=== PATIENT | female | born 1990 | race Caucasian/White ===

== ENCOUNTER → 2021-06-02 12:03 | Outpatient (CLI) | payer OTHER, SELFPAY ==
[2021-06-02 12:31] LABS: Add Manual Diff / Slide Review NO; Basophils Absolute Auto 100 /uL (0-100); Basophils Percent Auto 0.8 % (0-2); Eosinophils Absolute Auto 200 /uL (0-450); Eosinophils Percent Auto 2.1 % (2-4); Hematocrit 34.3 % (36-46); Hemoglobin 11.6 g/dL (12.0-16.0); Lymphocytes Absolute Auto 2200 /uL (1100-4500); Lymphocytes Percent Auto 28.1 % (25-40); Mean Corpuscular HGB Conc 33.7 % (30-36); Mean Corpuscular Hemoglobin 26.6 PG (26-34); Mean Corpuscular Volume 78.8 fL (80-100); Monocytes Absolute Auto 600 /uL (0-900); Monocytes Percent Auto 8.2 % (3-14); Neutrophils Absolute Auto 4700 /uL (1500-7000); Neutrophils Percent Auto 60.8 % (50-75); Platelet Count 389 X10^3/uL (150-400); Red Blood Cell Count 4.35 X10^6/uL (4.0-5.2); Red Cell Distribution Width 14.5 % (11.6-14.8); White Blood Cell Count 7.7 X10^3/uL (4.5-11.0)
[2021-06-02 13:08] LABS: HEMOLYSIS < 15 (0-50); Iron 37 ug/dL (37-170)
[2021-06-02 13:13] LABS: Erythrocyte Sedimentation Rate 19 MM/HR (0-20)
[2021-06-02 13:15] LABS: Alanine Aminotransferase 16 IU/L (<35); Albumin 4.6 g/dL (3.5-5.0); Albumin Globulin Ratio 1.6 (1.0-2.8); Alkaline Phosphatase 119 U/L (38-126); Aspartate Aminotransferase 24 IU/L (14-36); BUN Creatinine Ratio 11.7 (6-22); Bilirubin Total 0.6 mg/dL (0.2-1.3); Blood Urea Nitrogen 7 mg/dL (7-17); C-Reactive Protein Quant 2.8 mg/dL (<1.0); Calcium 9.5 mg/dL (8.4-10.2); Carbon Dioxide 26 mmol/L (22-32); Chloride 104 mmol/L (98-107); Estimated Glomerular Filt Rate > 60.0 mL/min (>60); Globulin 2.9 g/dL (1.7-4.1); Glucose 94 mg/dL (70-100); HEMOLYSIS < 15 (0-50); Potassium 3.9 mmol/L (3.4-5.1); Sodium 139 mmol/L (137-145); Total Protein 7.5 g/dL (6.3-8.2)
[2021-06-02 13:20] LABS: Percent Iron Saturation 8 % (15-50); Total Iron Binding Capacity 440 ug/dL (265-497); Transferrin 336 mg/dL (206-381)
[2021-06-02 13:39] LABS: TSH w/ Reflex to FT4 0.96 uIU/mL (0.47-4.68)
[2021-06-02 13:43] LABS: Ferritin 18 ng/mL (6-137)
[2021-06-02 13:58] LABS: Vitamin B12 848 pg/mL (239-931)
[2021-06-07 15:05] LABS: ANA Screen, IFA Negative (.)
== END ==
PROVIDERS: PCP Family Medicine; Referring Provider Family Medicine; Visit Provider Family Medicine
DX: D64.9 Anemia, unspecified (principal); E53.8 Deficiency of other specified B group vitamins; I10 Essential (primary) hypertension; K51.90 Ulcerative colitis, unspecified, without complications
CPT/HCPCS: 36415; 80053; 82607; 82728; 83540; 83550; 84443; 85025; 85651; 86038; 86140

== ENCOUNTER → 2022-01-31 09:26 | Outpatient (CLI) | payer OTHER, SELFPAY ==
[2022-01-31 10:13] LABS: Influenza A - CEPHEID Flu A POSITIVE (NEGATIVE); Influenza B - CEPHEID Flu B NEGATIVE (NEGATIVE); Respiratory Syncytial Virus Negative (Negative)
[2022-01-31 10:37] LABS: COVID-19 CEPHEID 4-PLEX PCR Negative (Negative)
== END ==
PROVIDERS: PCP Family Medicine; Visit Provider Nurse Practitioner Family
DX: R05.9 Cough, unspecified (principal)
CPT/HCPCS: 0241U

== ENCOUNTER 2022-02-07 18:14 | Emergency (ER) | payer OTHER, SELFPAY ==
[2022-02-07 18:19] VITALS: BP 142/87; PULSE 134; RESP 16; TEMP 36.8; O2SAT 99; BMI 37.5
[2022-02-07] MEDS: ONDANSETRON 4 MG/2 ML INJ IV ×2 (18:27→20:07)
--- NOTE | 2022-02-07 18:29 | DI.CT.S_ITS ---
PROCEDURE: CT ABDOMEN PELVIS WO CON INDICATIONS: RLQ pain, hx ulcerative colitis, vomiting 2 days TECHNIQUE: Noncontrast 5 mm thick sections acquired from the diaphragms to the symphysis. 5 mm coronal and sagittal reformats were then performed. For radiation dose reduction, the following was used: automated exposure control, adjustment of mA and/or kV according to patient size. COMPARISON: None. FINDINGS: Image quality: Excellent. ABDOMEN: Lung bases: Lung bases are clear. Heart size is normal. Solid organs: Liver is normal in size. Gallbladder is surgically absent. Pancreas is normal in contours. There is mild splenomegaly. No discrete splenic lesion. No adrenal nodules. Kidneys are normal in size, without hydronephrosis or nephrolithiasis. Peritoneum and bowel: There is no bowel obstruction. Mild mid to distal small bowel wall thickening extending to ileocecal junction is seen. Appendix is visualized in right lower quadrant and is within normal limits. No abscess collection. No free fluid or free air. Nodes and vessels: No retroperitoneal or mesenteric adenopathy by size criteria. Aorta and inferior vena cava are normal in caliber. Miscellaneous: No ventral hernias. PELVIS: Genitourinary: Bladder wall thickness is normal. Miscellaneous: No inguinal hernias or adenopathy. Bones: No suspicious bony lesions. No vertebral body compression fractures. IMPRESSION: 1. No evidence of acute appendicitis. No bowel obstruction. Suggestion of mild distal small bowel wall thickening concerning for mild terminal ileitis. No abscess collection. No free fluid or free air. 2. Borderline splenomegaly, no discrete splenic lesion. 3. Prior cholecystectomy. No biliary ductal dilatation. Dictated by: Eros Farnsworth M.D. on 02/07/2022 at 19:34 Approved by: Eros Farnsworth M.D. on 02/07/2022 at 19:37
--- NOTE | 2022-02-07 18:31 | ED.ABDPAIN ---
HPI - Abdominal Pain <DAR Frausto - Last Filed: 02/08/22 09:42> General Chief Complaint: Abdominal Pain Stated Complaint: severe abd pain, vomiting Time Seen by Provider: 02/07/22 18:25 Source: patient Mode of arrival: Ambulatory History of Present Illness HPI narrative: This is a 31-year-old female presents to the emergency department complaining of right lower quadrant pain which started yesterday, states that she has a history of ulcerative colitis, takes Entyvio for this every 4 weeks and recently received her dose, sees Dr. Belle with rheumatology. patient is not on any steroids. Denies any blood in her stool, states that she is been vomiting frequently, states that she had the flu a little while ago, 2 nights ago her son started vomiting, states that she is been vomiting as well. Denies alcohol or drug abuse, denies withdrawal from any substances. Patient denies dysuria, abnormal vaginal discharge, flank pain, back pain, or other complaint, states that her right lower quadrant is the most tender and denies having pelvic pain. Patient has a history of GERD, GI bleed, irregular menses with painful periods. Related Data Home Medications Medication Instructions Recorded Confirmed clonazepam 0.5 mg tablet (Klonopin) 0.5 mg PO DAILY PRN 06/02/21 01/31/22 cyanocobalamin (vitamin B-12) 100 mcg IM QMONTH 06/02/21 01/31/22 1,000 mcg/mL injection solution esomeprazole magnesium 40 mg 40 mg PO DAILY 06/02/21 01/31/22 capsule,delayed release (Nexium) labetalol 200 mg tablet 200 mg PO DAILY 06/02/21 01/31/22 vedolizumab 300 mg intravenous 300 mg IV Q4W 06/02/21 01/31/22 solution (Entyvio) Previous Rx's Medication Instructions Recorded sertraline 25 mg tablet (Zoloft) 25 mg PO DAILY #60 tabs 07/18/21 hydrocodone 5 mg-acetaminophen 325 1 tab PO BID PRN pain #10 tabs 02/07/22 mg tablet ondansetron 4 mg disintegrating 4 mg PO Q8H PRN nausea and 02/07/22 tablet vomiting #14 tabs Allergies Allergy/AdvReac Type Severity Reaction Status Date / Time Latex, Natural Rubber Allergy Mild Verified 02/07/22 18:19 Review of Systems <DAR Frausto - Last Filed: 02/08/22 09:42> Review of Systems ROS Unobtainable: All systems reviewed & are unremarkable except as noted in HPI and below Patient History <DAR Frausto - Last Filed: 02/08/22 09:42> Medical History Anxiety (~2017) Carpal tunnel syndrome (~2012) Chronic back pain (~2018) GERD (gastroesophageal reflux disease) (~2010) GI bleeding Hypertension (~2013) Infertility (~2016) Irregular menstrual cycle Painful menstrual periods Ulcerative colitis (~2010) Vertigo (~2012) Surgical History Anesthesia History of section (~09/2020) History of cholecystectomy (~12/2009) History of tonsillectomy (~06/2017) Ovarian cyst (~12/2017) Family History Father History of heart disease Hypertension Mother Mental health problem Grandfather History of heart disease Hyperlipidemia Hypertension Grandmother Hypertension Social History Smoking Status: Never smoker Smoking Status: Never smoker alcohol intake frequency: holidays/special occasions only Substance Use Type: does not use Exam <DAR Frausto - Last Filed: 02/08/22 09:42> Narrative Exam Narrative: Reviewed vitals signs and nursing notes. General: cooperative, patient is sitting up, diaphoretic, appears uncomfortable and is tachycardic with a rate of 130s without measured fever HEENT: symmetrical facial expressions, moist mucous membranes Cardiovascular: Tachycardic rate and regular rhythm, no peripheral edema, warm extremities Respiratory: normal effort, able to speak in complete sentences, without wheezing, stridor, or abnormal breath sounds. No retractions or tachypnea. GI: abdomen soft, tender to palpation to the right lower quadrant, nondistended, without masses, rebound tenderness or exquisite tenderness with exam. No CVA tenderness bilaterally MSK: moves all extremities, neurovascularly intact, no weakness, normal tone Skin: brisk capillary refill, mildly pale with diaphoresis currently Neuro: normal speech and cognition, A&O x3, ambulatory, clear speech Psych: mental status is grossly normal, congruent mood, normal affect, pleasant and cooperative Initial Vital Signs Initial Vital Signs: Vital Signs Temperature 98.3 F 02/07/22 18:19 Pulse Rate 134 H 02/07/22 18:19 Respiratory Rate 16 02/07/22 18:19 Blood Pressure 142/87 H 02/07/22 18:19 Pulse Oximetry 99 02/07/22 18:19 Oxygen Delivery Method 02/07/22 18:19 <Caitlin Tomas MD - Last Filed: 02/23/22 18:06> Initial Vital Signs Initial Vital Signs: Vital Signs Temperature 98.3 F 02/07/22 18:19 Pulse Rate 134 H 02/07/22 18:19 Respiratory Rate 16 02/07/22 18:19 Blood Pressure 142/87 H 02/07/22 18:19 Pulse Oximetry 99 02/07/22 18:19 Oxygen Delivery Method 02/07/22 18:19 Course <DAR Frausto - Last Filed: 02/08/22 09:42> Orders Ordered: Discontinued Medications Hydrocodone Bitart/Acetaminophen (Hydrocodone/Acet 5/325 Prepack) 1 bottle MISC SEEINSTR ONE Stop: 02/07/22 20:10 Last Admin: 02/07/22 20:51 Dose: 1 bottle Documented By: AGUSTIN Hydromorphone HCl (Hydromorphone 0.5 Mg Inj) 0.5 mg IV NOW ONE Stop: 02/07/22 18:31 Last Admin: 02/07/22 18:43 Dose: 0.5 mg Documented By: AGUSTIN Sodium Chloride (Normal Saline 0.9%) 1,000 mls @ 1,000 mls/hr IV BOLUS ONE Stop: 02/07/22 19:25 Last Infusion: 02/07/22 20:05 Dose: 0 mls/hr Documented By: Admin: 02/07/22 18:34 Dose: 1,000 mls/hr Documented By: AGUSTIN Sodium Chloride (Normal Saline 0.9%) 1,000 mls @ 1,000 mls/hr IV BOLUS ONE Stop: 02/07/22 20:29 Last Infusion: 02/07/22 20:57 Dose: 0 mls/hr Documented By: Admin: 02/07/22 20:05 Dose: 1,000 mls/hr Documented By: AGUSTIN Ketorolac Tromethamine (Ketorolac 30 Mg/Ml Vial) 15 mg IV NOW ONE Stop: 02/07/22 19:42 Last Admin: 02/07/22 20:05 Dose: 15 mg Documented By: AGUSTIN Methylprednisolone (Methylprednisolone 125 Mg/2 Ml Vial) 125 mg IV NOW ONE Stop: 02/07/22 19:51 Last Admin: 02/07/22 20:07 Dose: 125 mg Documented By: AGUSTIN Ondansetron HCl (Ondansetron 4 Mg/2 Ml Inj) 4 mg IV NOW PRN PRN Reason: Nausea And Vomiting Last Admin: 02/07/22 18:27 Dose: 4 mg Documented By: AGUSTIN Ondansetron HCl (Ondansetron 4 Mg/2 Ml Inj) 4 mg IV NOW ONE Stop: 02/07/22 18:26 Last Admin: 02/07/22 20:07 Dose: 4 mg Documented By: AGUSTIN Ondansetron HCl (Ondansetron 4 Mg Odt Prepack) 1 bottle MISC SEEINSTR ONE Stop: 02/07/22 20:10 Last Admin: 02/07/22 20:51 Dose: 1 bottle Documented By: AGUSTIN Pantoprazole Sodium (Pantoprazole 40 Mg Vial) 40 mg IV NOW ONE Stop: 02/07/22 18:26 Last Admin: 02/07/22 18:34 Dose: 40 mg Documented By: AGUSTIN Reevaluation(s) Reevaluation #1: Patient appears to be feeling much better after her pain medication and nausea medication, patient is receiving the end of her 1st L of fluid. Vital Signs Vital signs: Vital Signs - 8 hr 02/07/22 18:19 Temperature 98.3 F Pulse Rate 134 H Respiratory Rate 16 Blood Pressure 142/87 H Pulse Oximetry 99 Oxygen Delivery Method Room Air <Caitlin Tomas MD - Last Filed: 02/23/22 18:06> Orders Ordered: Discontinued Medications Hydrocodone Bitart/Acetaminophen (Hydrocodone/Acet 5/325 Prepack) 1 bottle MISC SEEINSTR ONE Stop: 02/07/22 20:10 Last Admin: 02/07/22 20:51 Dose: 1 bottle Documented By: AGUSTIN Hydromorphone HCl (Hydromorphone 0.5 Mg Inj) 0.5 mg IV NOW ONE Stop: 02/07/22 18:31 Last Admin: 02/07/22 18:43 Dose: 0.5 mg Documented By: AGUSTIN Sodium Chloride (Normal Saline 0.9%) 1,000 mls @ 1,000 mls/hr IV BOLUS ONE Stop: 02/07/22 19:25 Last Infusion: 02/07/22 20:05 Dose: 0 mls/hr Documented By: Admin: 02/07/22 18:34 Dose: 1,000 mls/hr Documented By: AGUSTIN Sodium Chloride (Normal Saline 0.9%) 1,000 mls @ 1,000 mls/hr IV BOLUS ONE Stop: 02/07/22 20:29 Last Infusion: 02/07/22 20:57 Dose: 0 mls/hr Documented By: Admin: 02/07/22 20:05 Dose: 1,000 mls/hr Documented By: AGUSTIN Ketorolac Tromethamine (Ketorolac 30 Mg/Ml Vial) 15 mg IV NOW ONE Stop: 02/07/22 19:42 Last Admin: 02/07/22 20:05 Dose: 15 mg Documented By: AGUSTIN Methylprednisolone (Methylprednisolone 125 Mg/2 Ml Vial) 125 mg IV NOW ONE Stop: 02/07/22 19:51 Last Admin: 02/07/22 20:07 Dose: 125 mg Documented By: AGUSTIN Ondansetron HCl (Ondansetron 4 Mg/2 Ml Inj) 4 mg IV NOW PRN PRN Reason: Nausea And Vomiting Last Admin: 02/07/22 18:27 Dose: 4 mg Documented By: AGUSTIN Ondansetron HCl (Ondansetron 4 Mg/2 Ml Inj) 4 mg IV NOW ONE Stop: 02/07/22 18:26 Last Admin: 02/07/22 20:07 Dose: 4 mg Documented By: AGUSTIN Ondansetron HCl (Ondansetron 4 Mg Odt Prepack) 1 bottle MISC SEEINSTR ONE Stop: 02/07/22 20:10 Last Admin: 02/07/22 20:51 Dose: 1 bottle Documented By: AGUSTIN Pantoprazole Sodium (Pantoprazole 40 Mg Vial) 40 mg IV NOW ONE Stop: 02/07/22 18:26 Last Admin: 02/07/22 18:34 Dose: 40 mg Documented By: AGUSTIN Vital Signs Vital signs: Vital Signs - 8 hr 02/07/22 18:19 Temperature 98.3 F Pulse Rate 134 H Respiratory Rate 16 Blood Pressure 142/87 H Pulse Oximetry 99 Oxygen Delivery Method Room Air MDM - Abdominal Pain <Babssonja Najerahali, BAKERY DECORATOR - Last Filed: 02/08/22 09:42> Lab Data Result diagrams: 02/07/22 18:35 02/07/22 18:35 Labs: Lab Results 02/07/22 02/07/22 02/07/22 Range/Units 18:35 18:35 18:35 WBC 16.6 H (4.5-11.0) X10^3/uL RBC 5.25 H (4.0-5.2) X10^6/uL Hgb 13.9 (12.0-16.0) g/dL Hct 41.3 (36-46) % MCV 78.7 L (80-100) fL MCH 26.4 (26-34) PG MCHC 33.5 (30-36) % RDW 14.9 H (11.6-14.8) % Plt Count 504 H (150-400) X10^3/uL Neut % (Auto) 86.7 H (50-75) % Lymph % (Auto) 6.4 L (25-40) % Calloway % (Auto) 6.1 (3-14) % Eos % (Auto) 0.6 L (2-4) % Baso % (Auto) 0.2 (0-2) % Neut # (Auto) 30384 H (8459-8738) /uL Lymph # (Auto) 1100 (4845-0626) /uL Calloway # (Auto) 1000 H (0-900) /uL Eos # (Auto) 100 (0-450) /uL Baso # (Auto) 0 (0-100) /uL Sodium 138 (137-145) mmol/L Potassium 4.3 (3.4-5.1) mmol/L Chloride 101 (98-107) mmol/L Carbon Dioxide 26 (22-32) mmol/L BUN 12 (7-17) mg/dL Creatinine 0.66 (0.52-1.04) mg/dL Estimated GFR > 60 (>60) mL/min BUN/Creatinine Ratio 18.2 (6-22) Glucose 116 H (70-100) mg/dL Lactate 1.6 (0.7-2.1) mmol/L Calcium 9.9 (8.4-10.2) mg/dL Total Bilirubin 0.9 (0.2-1.3) mg/dL AST 23 (14-36) IU/L ALT 17 (<35) IU/L Alkaline Phosphatase 125 (38-126) U/L Total Creatine Kinase (30-135) U/L CK-MB (CK-2) CK-MB (CK-2) Rel Index Troponin I (0.01-0.034) ng/mL Total Protein 9.1 H (6.3-8.2) g/dL Albumin 5.2 H (3.5-5.0) g/dL Globulin 3.9 (1.7-4.1) g/dL Albumin/Globulin Ratio 1.3 (1.0-2.8) Lipase 45 (23-300) U/L Procalcitonin (<0.5) ng/mL Urine RBC (0-5/HPF) Urine WBC (0-5/HPF) Ur Squamous Epith Cells (0-5/HPF) Amorphous Sediment Urine Bacteria (None) SARS-CoV-2 (PCR) (Negative) Influenza A (RT-PCR) (NEGATIVE) Influenza B (RT-PCR) (NEGATIVE) RSV (PCR) (Negative) 02/07/22 02/07/22 02/07/22 Range/Units 18:35 18:35 18:35 WBC (4.5-11.0) X10^3/uL RBC (4.0-5.2) X10^6/uL Hgb (12.0-16.0) g/dL Hct (36-46) % MCV (80-100) fL MCH (26-34) PG MCHC (30-36) % RDW (11.6-14.8) % Plt Count (150-400) X10^3/uL Neut % (Auto) (50-75) % Lymph % (Auto) (25-40) % Calloway % (Auto) (3-14) % Eos % (Auto) (2-4) % Baso % (Auto) (0-2) % Neut # (Auto) (2557-3018) /uL Lymph # (Auto) (2957-5985) /uL Calloway # (Auto) (0-900) /uL Eos # (Auto) (0-450) /uL Baso # (Auto) (0-100) /uL Sodium (137-145) mmol/L Potassium (3.4-5.1) mmol/L Chloride (98-107) mmol/L Carbon Dioxide (22-32) mmol/L BUN (7-17) mg/dL Creatinine (0.52-1.04) mg/dL Estimated GFR (>60) mL/min BUN/Creatinine Ratio (6-22) Glucose (70-100) mg/dL Lactate (0.7-2.1) mmol/L Calcium (8.4-10.2) mg/dL Total Bilirubin (0.2-1.3) mg/dL AST (14-36) IU/L ALT (<35) IU/L Alkaline Phosphatase (38-126) U/L Total Creatine Kinase 81 (30-135) U/L CK-MB (CK-2) TNP CK-MB (CK-2) Rel Index TNP Troponin I < 0.012 (0.01-0.034) ng/mL Total Protein (6.3-8.2) g/dL Albumin (3.5-5.0) g/dL Globulin (1.7-4.1) g/dL Albumin/Globulin Ratio (1.0-2.8) Lipase (23-300) U/L Procalcitonin 0.03 (<0.5) ng/mL Urine RBC 0-1/hpf (0-5/HPF) Urine WBC 0-1/hpf (0-5/HPF) Ur Squamous Epith Cells 0-1 /hpf (0-5/HPF) Amorphous Sediment 1+ Urine Bacteria Occasional (0-1) (None) SARS-CoV-2 (PCR) (Negative) Influenza A (RT-PCR) (NEGATIVE) Influenza B (RT-PCR) (NEGATIVE) RSV (PCR) (Negative) 02/07/22 Range/Units 18:48 WBC (4.5-11.0) X10^3/uL RBC (4.0-5.2) X10^6/uL Hgb (12.0-16.0) g/dL Hct (36-46) % MCV (80-100) fL MCH (26-34) PG MCHC (30-36) % RDW (11.6-14.8) % Plt Count (150-400) X10^3/uL Neut % (Auto) (50-75) % Lymph % (Auto) (25-40) % Calloway % (Auto) (3-14) % Eos % (Auto) (2-4) % Baso % (Auto) (0-2) % Neut # (Auto) (4422-6298) /uL Lymph # (Auto) (3662-4825) /uL Calloway # (Auto) (0-900) /uL Eos # (Auto) (0-450) /uL Baso # (Auto) (0-100) /uL Sodium (137-145) mmol/L Potassium (3.4-5.1) mmol/L Chloride (98-107) mmol/L Carbon Dioxide (22-32) mmol/L BUN (7-17) mg/dL Creatinine (0.52-1.04) mg/dL Estimated GFR (>60) mL/min BUN/Creatinine Ratio (6-22) Glucose (70-100) mg/dL Lactate (0.7-2.1) mmol/L Calcium (8.4-10.2) mg/dL Total Bilirubin (0.2-1.3) mg/dL AST (14-36) IU/L ALT (<35) IU/L Alkaline Phosphatase (38-126) U/L Total Creatine Kinase (30-135) U/L CK-MB (CK-2) CK-MB (CK-2) Rel Index Troponin I (0.01-0.034) ng/mL Total Protein (6.3-8.2) g/dL Albumin (3.5-5.0) g/dL Globulin (1.7-4.1) g/dL Albumin/Globulin Ratio (1.0-2.8) Lipase (23-300) U/L Procalcitonin (<0.5) ng/mL Urine RBC (0-5/HPF) Urine WBC (0-5/HPF) Ur Squamous Epith Cells (0-5/HPF) Amorphous Sediment Urine Bacteria (None) SARS-CoV-2 (PCR) Negative (Negative) Influenza A (RT-PCR) Flu a negative (NEGATIVE) Influenza B (RT-PCR) Flu b negative (NEGATIVE) RSV (PCR) Negative (Negative) Point of care testing: Point of Care Testing Test Results Negative Urine Dip Bedside Urine Glucose Negative Bedside Urine Bilirubin - Negative Bedside Urine Ketone +/- 5 Urine Specific Brainard 1.03 Bedside Urine Occult Blood +/- Bedside Urine pH 5.5 Bedside Urine Protein ++ 100 Bedside Urine Urobilinogen - Negative Bedside Urine Nitrite - Negative Bedside Urine Leukocytes - Negative Esterase Imaging Data CT scan - abdomen/pelvis: Radiologist's Impression: PROCEDURE:? CT ABDOMEN PELVIS WO CON ? INDICATIONS:? RLQ pain, hx ulcerative colitis, vomiting 2 days ? TECHNIQUE:? Noncontrast 5 mm thick sections acquired from the diaphragms to the symphysis.? 5 mm coronal and sagittal reformats were then performed.? For radiation dose reduction, the following was used:? automated exposure control, adjustment of mA and/or kV according to patient size.? ? COMPARISON:? None. ? FINDINGS:? Image quality:? Excellent.? ? ABDOMEN:? Lung bases:? Lung bases are clear.? Heart size is normal.? ? Solid organs:? Liver is normal in size.? Gallbladder is surgically absent.? Pancreas is normal in contours.? There is mild splenomegaly.? No discrete splenic lesion.? No adrenal nodules.? Kidneys are normal in size, without hydronephrosis or nephrolithiasis.? ? Peritoneum and bowel:? There is no bowel obstruction.? Mild mid to distal small bowel wall thickening extending to ileocecal junction is seen.? Appendix is visualized in right lower quadrant and is within normal limits.? No abscess collection.? No free fluid or free air. ? Nodes and vessels:? No retroperitoneal or mesenteric adenopathy by size criteria.? Aorta and inferior vena cava are normal in caliber.? ? Miscellaneous:? No ventral hernias.? ? ? PELVIS:? Genitourinary:? Bladder wall thickness is normal.? ? Miscellaneous:? No inguinal hernias or adenopathy.? ? Bones:? No suspicious bony lesions.? No vertebral body compression fractures.? ? IMPRESSION:? ? 1. No evidence of acute appendicitis.? No bowel obstruction.? Suggestion of mild distal small bowel wall thickening concerning for mild terminal ileitis.? No abscess collection. ?No free fluid or free air. ? 2. Borderline splenomegaly, no discrete splenic lesion. ? 3. Prior cholecystectomy.? No biliary ductal dilatation.? ? ? Dictated by: Eros Farnsworth M.D. on 02/07/2022 at 19:34 ? ? Approved by: Eros Farnsworth M.D. on 02/07/2022 at 19:37 ? Chest x-ray: Radiologist's Impression: PROCEDURE:? XR CHEST 2V ? INDICATIONS:? pneumonia? ? TECHNIQUE:? 2 views of the chest were acquired.? ? COMPARISON:? None. ? FINDINGS:? ? Surgical changes and devices:? None.? ? Lungs and pleura:? Lungs are clear.? No pleural effusions or pneumothorax.? ? Mediastinum:? Mediastinal contours are normal.? Heart size is normal.? ? Bones and chest wall:? No suspicious bony abnormalities.? Soft tissues appear unremarkable.? ? IMPRESSION:? No acute cardiopulmonary pathology. ? ? Dictated by: Eros Farnsworth M.D. on 02/07/2022 at 20:05 ? ? Approved by: Eros Farnsworth M.D. on 02/07/2022 at 20:07 ? MDM Narrative Medical decision making narrative: This is a 31-year-old female presents to the emergency department 7 days after testing positive for influenza A with a sick child at home who started vomiting 2 days ago. She presents with frequent vomiting today without blood in her emesis or her stool with a history of start of colitis for which she is on Entyvio 4. Denies diarrhea, denies fever or chills. States that she is extremely dehydrated and her workup today reflects hemoconcentration with acute dehydration. Her white blood cell count is elevated to 16.6 with predominance of neutrophils, low lymphocytic edge and without evidence of bacterial infection. With a source. She was given 1 L of IV fluids, pain medication, and her symptoms improved greatly her vomiting stopped. Her respiratory panel is negative for COVID, influenza and RSV today, her urine is negative for infection, procalcitonin 0.03 without electrolyte abnormalities otherwise. Her lactate is 1.6. test was negative. Abdomen pelvis CT was ordered for right lower quadrant tenderness, no evidence of acute appendicitis or bowel obstruction, suggestion of mild distal small bowel wall thickening for mild terminal ileitis without abscess collection, no free fluid or free air, patient has a history of ulcerative colitis but came in today for right lower quadrant tenderness. Diarrhea is not her predominant symptom, vomiting is. Chest x-ray was obtained for evaluation of superimposed bacterial infection, she does not have any focal opacities or consolidations concerning for bacterial pneumonia this point. Patient appears much more comfortable after her 1 L of fluid and pain medication. She was treated with 2 L of normal saline, her tachycardia has improved, her pain is mostly relieved, she was given Solu-Medrol 125 mg IV and prescribed 5 days of prednisone at 20 mg. She was given a total of 8 mg of Zofran, her nausea and vomiting has improved, she was able tolerate p.o. fluids prior to discharge No antibiotics were prescribed today, encouraged her to schedule a follow-up appoint with [facility] and follow-up with rheumatology as needed. No peritoneal signs on abdominal exam. Patient is now p.o. tolerant. Serial abdominal exam without increase in abdominal pain. Given history and exam, low suspicion for acute abdominal process, such as acute cholecystitis, pancreatitis, perforated viscus, atypical appendicitis, colitis, diverticulitis or torsion. Extensive conversation about ER return precautions and need for close follow-up. Patient's primary care provider is Dr. Mosqueda, she sees Dr. Belle with rheumatology and [facility]. Consulted with Dr. Medina for care planning today for her terminal ileitis and we discussed the above therapies that she received here in the emergency department with agreement. Patient's vital signs were improved on recheck. Patient is appropriate and amenable to discharge home. Vital signs are stable on repeat examination is unremarkable. Patient has been informed of results. Patient has been given strict return to ER precautions for any new or worsening symptoms. Patient understands to follow up closely with outpatient providers as instructed. Patient understands plan and agrees to discharge home. All questions and concerns answered at this time. <Caitlin Tomas MD - Last Filed: 02/23/22 18:06> Lab Data Labs: Lab Results 02/07/22 02/07/22 02/07/22 Range/Units 18:35 18:35 18:35 WBC 16.6 H (4.5-11.0) X10^3/uL RBC 5.25 H (4.0-5.2) X10^6/uL Hgb 13.9 (12.0-16.0) g/dL Hct 41.3 (36-46) % MCV 78.7 L (80-100) fL MCH 26.4 (26-34) PG MCHC 33.5 (30-36) % RDW 14.9 H (11.6-14.8) % Plt Count 504 H (150-400) X10^3/uL Neut % (Auto) 86.7 H (50-75) % Lymph % (Auto) 6.4 L (25-40) % Calloway % (Auto) 6.1 (3-14) % Eos % (Auto) 0.6 L (2-4) % Baso % (Auto) 0.2 (0-2) % Neut # (Auto) 58452 H (3951-3241) /uL Lymph # (Auto) 1100 (0858-8876) /uL Calloway # (Auto) 1000 H (0-900) /uL Eos # (Auto) 100 (0-450) /uL Baso # (Auto) 0 (0-100) /uL Sodium 138 (137-145) mmol/L Potassium 4.3 (3.4-5.1) mmol/L Chloride 101 (98-107) mmol/L Carbon Dioxide 26 (22-32) mmol/L BUN 12 (7-17) mg/dL Creatinine 0.66 (0.52-1.04) mg/dL Estimated GFR > 60 (>60) mL/min BUN/Creatinine Ratio 18.2 (6-22) Glucose 116 H (70-100) mg/dL Lactate 1.6 (0.7-2.1) mmol/L Calcium 9.9 (8.4-10.2) mg/dL Total Bilirubin 0.9 (0.2-1.3) mg/dL AST 23 (14-36) IU/L ALT 17 (<35) IU/L Alkaline Phosphatase 125 (38-126) U/L Total Creatine Kinase (30-135) U/L CK-MB (CK-2) CK-MB (CK-2) Rel Index Troponin I (0.01-0.034) ng/mL Total Protein 9.1 H (6.3-8.2) g/dL Albumin 5.2 H (3.5-5.0) g/dL Globulin 3.9 (1.7-4.1) g/dL Albumin/Globulin Ratio 1.3 (1.0-2.8) Lipase 45 (23-300) U/L Procalcitonin (<0.5) ng/mL Urine RBC (0-5/HPF) Urine WBC (0-5/HPF) Ur Squamous Epith Cells (0-5/HPF) Amorphous Sediment Urine Bacteria (None) SARS-CoV-2 (PCR) (Negative) Influenza A (RT-PCR) (NEGATIVE) Influenza B (RT-PCR) (NEGATIVE) RSV (PCR) (Negative) 02/07/22 02/07/22 02/07/22 Range/Units 18:35 18:35 18:35 WBC (4.5-11.0) X10^3/uL RBC (4.0-5.2) X10^6/uL Hgb (12.0-16.0) g/dL Hct (36-46) % MCV (80-100) fL MCH (26-34) PG MCHC (30-36) % RDW (11.6-14.8) % Plt Count (150-400) X10^3/uL Neut % (Auto) (50-75) % Lymph % (Auto) (25-40) % Calloway % (Auto) (3-14) % Eos % (Auto) (2-4) % Baso % (Auto) (0-2) % Neut # (Auto) (2465-9340) /uL Lymph # (Auto) (1738-8027) /uL Calloway # (Auto) (0-900) /uL Eos # (Auto) (0-450) /uL Baso # (Auto) (0-100) /uL Sodium (137-145) mmol/L Potassium (3.4-5.1) mmol/L Chloride (98-107) mmol/L Carbon Dioxide (22-32) mmol/L BUN (7-17) mg/dL Creatinine (0.52-1.04) mg/dL Estimated GFR (>60) mL/min BUN/Creatinine Ratio (6-22) Glucose (70-100) mg/dL Lactate (0.7-2.1) mmol/L Calcium (8.4-10.2) mg/dL Total Bilirubin (0.2-1.3) mg/dL AST (14-36) IU/L ALT (<35) IU/L Alkaline Phosphatase (38-126) U/L Total Creatine Kinase 81 (30-135) U/L CK-MB (CK-2) TNP CK-MB (CK-2) Rel Index TNP Troponin I < 0.012 (0.01-0.034) ng/mL Total Protein (6.3-8.2) g/dL Albumin (3.5-5.0) g/dL Globulin (1.7-4.1) g/dL Albumin/Globulin Ratio (1.0-2.8) Lipase (23-300) U/L Procalcitonin 0.03 (<0.5) ng/mL Urine RBC 0-1/hpf (0-5/HPF) Urine WBC 0-1/hpf (0-5/HPF) Ur Squamous Epith Cells 0-1 /hpf (0-5/HPF) Amorphous Sediment 1+ Urine Bacteria Occasional (0-1) (None) SARS-CoV-2 (PCR) (Negative) Influenza A (RT-PCR) (NEGATIVE) Influenza B (RT-PCR) (NEGATIVE) RSV (PCR) (Negative) 02/07/22 Range/Units 18:48 WBC (4.5-11.0) X10^3/uL RBC (4.0-5.2) X10^6/uL Hgb (12.0-16.0) g/dL Hct (36-46) % MCV (80-100) fL MCH (26-34) PG MCHC (30-36) % RDW (11.6-14.8) % Plt Count (150-400) X10^3/uL Neut % (Auto) (50-75) % Lymph % (Auto) (25-40) % [place] % (Auto) (3-14) % Eos % (Auto) (2-4) % Baso % (Auto) (0-2) % Neut # (Auto) (4123-4001) /uL Lymph # (Auto) (4595-6526) /uL [place] # (Auto) (0-900) /uL Eos # (Auto) (0-450) /uL Baso # (Auto) (0-100) /uL Sodium (137-145) mmol/L Potassium (3.4-5.1) mmol/L Chloride (98-107) mmol/L Carbon Dioxide (22-32) mmol/L BUN (7-17) mg/dL Creatinine (0.52-1.04) mg/dL Estimated GFR (>60) mL/min BUN/Creatinine Ratio (6-22) Glucose (70-100) mg/dL Lactate (0.7-2.1) mmol/L Calcium (8.4-10.2) mg/dL Total Bilirubin (0.2-1.3) mg/dL AST (14-36) IU/L ALT (<35) IU/L Alkaline Phosphatase (38-126) U/L Total Creatine Kinase (30-135) U/L CK-MB (CK-2) CK-MB (CK-2) Rel Index Troponin I (0.01-0.034) ng/mL Total Protein (6.3-8.2) g/dL Albumin (3.5-5.0) g/dL Globulin (1.7-4.1) g/dL Albumin/Globulin Ratio (1.0-2.8) Lipase (23-300) U/L Procalcitonin (<0.5) ng/mL Urine RBC (0-5/HPF) Urine WBC (0-5/HPF) Ur Squamous Epith Cells (0-5/HPF) Amorphous Sediment Urine Bacteria (None) SARS-CoV-2 (PCR) Negative (Negative) Influenza A (RT-PCR) Flu a negative (NEGATIVE) Influenza B (RT-PCR) Flu b negative (NEGATIVE) RSV (PCR) Negative (Negative) Point of care testing: Point of Care Testing Test Results Negative Urine Dip Bedside Urine Glucose Negative Bedside Urine Bilirubin - Negative Bedside Urine Ketone +/- 5 Urine Specific [place] 1.03 Bedside Urine Occult Blood +/- Bedside Urine pH 5.5 Bedside Urine Protein ++ 100 Bedside Urine Urobilinogen - Negative Bedside Urine Nitrite - Negative Bedside Urine Leukocytes - Negative Esterase Discharge Plan Departure Patient Disposition: Home Clinical Impression: Ileitis, terminal, Abdominal pain, Vomiting, Acute dehydration Instructions: Dehydration, DI for Vomiting -- Adult, DI for Ileitis Activity Restrictions/Additional Instructions: *You have been diagnosed with ileitis, inflammation of the terminal ileum which is in the right lower quadrant where you had pain today. This is most likely related to a flare and should not need antibiotics since you have history of ulcerative colitis. We gave you a steroid today to calm this down, and 5 days of a steroid to help keep the inflammation down. Please use the pain pills as needed to help treat your pain but consider a stool softener so that you do not develop constipation with this inflammatory colon. Please stay hydrated, use Tylenol and hydrocodone as needed for your pain, please schedule a follow-up appointment with the gastroenterology group for a recheck, your CT will be available for them to review. You were very dehydrated when you came in today, your COVID, flu and RSV test came back negative however I think you have inflammation and worsening of your symptoms due to the flu and your viral respiratory infection. I am glad that part is better, I am sorry for your symptoms, I have sent Zofran for nausea vomiting to the [facility] as well. *What to do: *Please continue to take your regular medications as directed. [ x] New medication prescriptions sent to your pharmacy: [ [facility]] [ ] New medication written as a paper prescription [ ] No new medications given *Please follow up with your primary care provider in 2-3 days, call for an appointment. Let them know you were seen in the Emergency Department and that we asked that you be seen for follow-up. We will electronically transmit a record of today's note if your PCP is in our system *If you do not have a primary care provider please contact [phone] to establish care with one of the [facility] primary care providers. *Return to Emergency Department if you should have any new, worsening, or concerning symptoms, such as [fever greater than 101F, chills, worsening pain, persistent vomiting or other bothersome symptoms]. Prescriptions: New ondansetron 4 mg tablet,disintegrating 4 mg PO Q8H PRN (Reason: nausea and vomiting) Qty: 14 0RF hydrocodone-acetaminophen 5-325 mg tablet 1 tab PO BID PRN (Reason: pain) Qty: 10 0RF Rx Instructions: Please consider a stool softener with this medication so it does not cause constipation No Action Entyvio 300 mg recon soln 300 mg IV Q4W Rx Instructions: administer week 6 of treatment esomeprazole magnesium [Nexium] 40 mg capsule,delayed release(DR/EC) 40 mg PO DAILY labetalol 200 mg tablet 200 mg PO DAILY cyanocobalamin (vitamin B-12) 1,000 mcg/mL solution 100 mcg IM QMONTH clonazepam [Klonopin] 0.5 mg tablet 0.5 mg PO DAILY PRN sertraline [Zoloft] 25 mg tablet 25 mg PO DAILY Qty: 60 0RF Referrals: [facility] Gastroenterology [Outside] Anuja Belle MD [Non-Staff] - Clemente Mosqueda MD [Primary Care Provider] - Visit Report Forms: Patient Portal/API <Caitlin Tomas MD - Last Filed: 02/23/22 18:06> Cosign ED Attending Cosignature Attestation: I was immediately available in the department for consultation throughout this patient's visit. I agree with documentation as above. Caitlin Tomas MD
[2022-02-07] MEDS: SODIUM CHLORIDE 0.9% 1,000 ML 1000 ML IV ×2 (18:34→20:05)
[2022-02-07] MEDS: PANTOPRAZOLE 40 MG VIAL IV (18:34)
[2022-02-07] MEDS: HYDROMORPHONE 0.5 MG INJ IV (18:43)
[2022-02-07 19:01] LABS: Add Manual Diff / Slide Review NO; Basophils Absolute Auto 0 /uL (0-100); Basophils Percent Auto 0.2 % (0-2); Eosinophils Absolute Auto 100 /uL (0-450); Eosinophils Percent Auto 0.6 % (2-4); Hematocrit 41.3 % (36-46); Hemoglobin 13.9 g/dL (12.0-16.0); Lymphocytes Absolute Auto 1100 /uL (1100-4500); Lymphocytes Percent Auto 6.4 % (25-40); Mean Corpuscular HGB Conc 33.5 % (30-36); Mean Corpuscular Hemoglobin 26.4 PG (26-34); Mean Corpuscular Volume 78.7 fL (80-100); Monocytes Absolute Auto 1000 /uL (0-900); Monocytes Percent Auto 6.1 % (3-14); Neutrophils Absolute Auto 14400 /uL (1500-7000); Neutrophils Percent Auto 86.7 % (50-75); Platelet Count 504 X10^3/uL (150-400); Red Blood Cell Count 5.25 X10^6/uL (4.0-5.2); Red Cell Distribution Width 14.9 % (11.6-14.8); White Blood Cell Count 16.6 X10^3/uL (4.5-11.0)
[2022-02-07 19:02] LABS: Lactate (Lactic Acid) 1.6 mmol/L (0.7-2.1)
[2022-02-07 19:03] LABS: Alanine Aminotransferase 17 IU/L (<35); Albumin 5.2 g/dL (3.5-5.0); Albumin Globulin Ratio 1.3 (1.0-2.8); Alkaline Phosphatase 125 U/L (38-126); Aspartate Aminotransferase 23 IU/L (14-36); BUN Creatinine Ratio 18.2 (6-22); Bilirubin Total 0.9 mg/dL (0.2-1.3); Blood Urea Nitrogen 12 mg/dL (7-17); Calcium 9.9 mg/dL (8.4-10.2); Carbon Dioxide 26 mmol/L (22-32); Chloride 101 mmol/L (98-107); Estimated Glomerular Filt Rate > 60 mL/min (>60); Globulin 3.9 g/dL (1.7-4.1); Glucose 116 mg/dL (70-100); HEMOLYSIS 44 (0-50); Lipase 45 U/L (23-300); Potassium 4.3 mmol/L (3.4-5.1); Sodium 138 mmol/L (137-145); Total Protein 9.1 g/dL (6.3-8.2)
[2022-02-07 19:20] LABS: Procalcitonin 0.03 ng/mL (<0.5)
--- NOTE | 2022-02-07 19:30 | DI.RAD.S_ITS ---
PROCEDURE: XR CHEST 2V INDICATIONS: pneumonia? TECHNIQUE: 2 views of the chest were acquired. COMPARISON: None. FINDINGS: Surgical changes and devices: None. Lungs and pleura: Lungs are clear. No pleural effusions or pneumothorax. Mediastinum: Mediastinal contours are normal. Heart size is normal. Bones and chest wall: No suspicious bony abnormalities. Soft tissues appear unremarkable. IMPRESSION: No acute cardiopulmonary pathology. Dictated by: Eros Farnsworth M.D. on 02/07/2022 at 20:05 Approved by: Eros Farnsworth M.D. on 02/07/2022 at 20:07
[2022-02-07 19:34] LABS: Influenza A - CEPHEID Flu A NEGATIVE (NEGATIVE); Influenza B - CEPHEID Flu B NEGATIVE (NEGATIVE); Respiratory Syncytial Virus Negative (Negative)
[2022-02-07 19:34] LABS: Amorphous Sediment Urine 1+; Bacteria Urine Occasional (0-1); RBC Urine 0-1/HPF (0-5/HPF); Squamous Epithelial Cell Urine 0-1 /HPF (0-5/HPF); WBC Urine 0-1/HPF (0-5/HPF)
[2022-02-07 19:42] LABS: COVID-19 CEPHEID 4-PLEX PCR Negative (Negative)
[2022-02-07] MEDS: KETOROLAC 30 MG/ML VIAL 15 MG IV (20:05)
[2022-02-07] MEDS: methylPREDNISolone 125 MG/2 ML VIAL IV (20:07)
[2022-02-07 20:24] LABS: Creatine Kinase 81 U/L (30-135)
[2022-02-07 20:35] LABS: Troponin I < 0.012 ng/mL (0.01-0.034)
[2022-02-07 20:39] VITALS: BP 129/91; PULSE 107; RESP 20; O2SAT 96
[2022-02-07] MEDS: ONDANSETRON 4 MG ODT PREPACK 1 BOTTLE MISC (20:51)
[2022-02-07] MEDS: HYDROCODONE/ACET 5/325 PREPACK 1 BOTTLE MISC (20:51)
== END 2022-02-07 21:16 | disposition home or self-care (01) ==
PROVIDERS: Emergency Medicine; Emergency Provider Nurse Practitioner Critical Care Medicine; PCP Family Medicine
DX: K50.00 Crohn's disease of small intestine without complications (principal); E86.0 Dehydration; R10.31 Right lower quadrant pain; R11.2 Nausea with vomiting, unspecified; Z79.899 Other long term (current) drug therapy; Z20.822 Contact with and (suspected) exposure to COVID-19
CPT/HCPCS: 0241U; 36415; 71046; 74176; 80053; 81003; 81015; 81025; 82550; 83605; 83690; 84145; 84484; 85025; 87086; 96361; 96374; 96375; 96376; 99284; C9113; J1170; J1885; J2405; J2930

== ENCOUNTER → 2022-07-24 16:43 | Outpatient (CLI) | payer OTHER, SELFPAY ==
[2022-07-24 16:57] LABS: Add Manual Diff / Slide Review NO; Basophils Absolute Auto 100 /uL (0-100); Basophils Percent Auto 0.9 % (0-2); Eosinophils Absolute Auto 200 /uL (0-450); Eosinophils Percent Auto 2.1 % (2-4); Hematocrit 37.3 % (36-46); Hemoglobin 12.5 g/dL (12.0-16.0); Lymphocytes Absolute Auto 3000 /uL (1100-4500); Lymphocytes Percent Auto 34.1 % (25-40); Mean Corpuscular HGB Conc 33.6 % (30-36); Mean Corpuscular Hemoglobin 27.7 PG (26-34); Mean Corpuscular Volume 82.3 fL (80-100); Monocytes Absolute Auto 700 /uL (0-900); Monocytes Percent Auto 7.6 % (3-14); Neutrophils Absolute Auto 4900 /uL (1500-7000); Neutrophils Percent Auto 55.3 % (50-75); Platelet Count 397 X10^3/uL (150-400); Red Blood Cell Count 4.53 X10^6/uL (4.0-5.2); Red Cell Distribution Width 15.3 % (11.6-14.8); White Blood Cell Count 8.8 X10^3/uL (4.5-11.0)
[2022-07-24 17:16] LABS: Alanine Aminotransferase 16 IU/L (<35); Albumin 4.6 g/dL (3.5-5.0); Albumin Globulin Ratio 1.4 (1.0-2.8); Alkaline Phosphatase 87 U/L (38-126); Aspartate Aminotransferase 23 IU/L (14-36); BUN Creatinine Ratio 9.6 (6-22); Bilirubin Total 0.3 mg/dL (0.2-1.3); Blood Urea Nitrogen 7 mg/dL (7-17); Calcium 9.4 mg/dL (8.4-10.2); Carbon Dioxide 27 mmol/L (22-32); Chloride 101 mmol/L (98-107); Estimated Glomerular Filt Rate > 60 mL/min (>60); Globulin 3.3 g/dL (1.7-4.1); Glucose 93 mg/dL (70-100); HEMOLYSIS < 15 (0-50); Potassium 3.9 mmol/L (3.4-5.1); Sodium 137 mmol/L (137-145); Total Protein 7.9 g/dL (6.3-8.2)
== END ==
PROVIDERS: PCP Family Medicine; Referring Provider Family Medicine; Visit Provider Family Medicine
DX: D72.829 Elevated white blood cell count, unspecified (principal); F41.9 Anxiety disorder, unspecified; I10 Essential (primary) hypertension; K51.90 Ulcerative colitis, unspecified, without complications
CPT/HCPCS: 36415; 80053; 85025

== ENCOUNTER 2022-08-08 12:48 | Emergency (ER) | payer OTHER, SELFPAY ==
[2022-08-08] VITALS (15 sets, daily range): BP systolic 126–144; BP diastolic 72–98; PULSE 91–123; RESP 16–18; TEMP 35.6; O2SAT 95–97; BMI 37.5
[2022-08-08 13:39] LABS: Add Manual Diff / Slide Review NO; Basophils Absolute Auto 0 /uL (0-100); Basophils Percent Auto 0.3 % (0-2); Eosinophils Absolute Auto 100 /uL (0-450); Eosinophils Percent Auto 0.6 % (2-4); Hematocrit 40.4 % (36-46); Hemoglobin 13.6 g/dL (12.0-16.0); Lymphocytes Absolute Auto 700 /uL (1100-4500); Lymphocytes Percent Auto 6.3 % (25-40); Mean Corpuscular HGB Conc 33.7 % (30-36); Mean Corpuscular Hemoglobin 27.6 PG (26-34); Mean Corpuscular Volume 81.9 fL (80-100); Monocytes Absolute Auto 400 /uL (0-900); Monocytes Percent Auto 3.9 % (3-14); Neutrophils Absolute Auto 9900 /uL (1500-7000); Neutrophils Percent Auto 88.9 % (50-75); Platelet Count 376 X10^3/uL (150-400); Red Blood Cell Count 4.93 X10^6/uL (4.0-5.2); Red Cell Distribution Width 15.2 % (11.6-14.8); White Blood Cell Count 11.2 X10^3/uL (4.5-11.0)
[2022-08-08] MEDS: ONDANSETRON 4 MG/2 ML INJ IV ×2 (13:50→15:05)
[2022-08-08] MEDS: SODIUM CHLORIDE 0.9% 1,000 ML 1000 ML IV ×3 (13:50→17:48)
[2022-08-08 13:51] LABS: Alanine Aminotransferase 18 IU/L (<35); Albumin 4.9 g/dL (3.5-5.0); Albumin Globulin Ratio 1.3 (1.0-2.8); Alkaline Phosphatase 122 U/L (38-126); Aspartate Aminotransferase 23 IU/L (14-36); BUN Creatinine Ratio 20.3 (6-22); Bilirubin Total 0.6 mg/dL (0.2-1.3); Blood Urea Nitrogen 13 mg/dL (7-17); Calcium 9.4 mg/dL (8.4-10.2); Carbon Dioxide 27 mmol/L (22-32); Chloride 98 mmol/L (98-107); Estimated Glomerular Filt Rate > 60 mL/min (>60); Globulin 3.7 g/dL (1.7-4.1); Glucose 125 mg/dL (70-100); HEMOLYSIS < 15 (0-50); Lipase 32 U/L (23-300); Potassium 4.3 mmol/L (3.4-5.1); Sodium 135 mmol/L (137-145); Total Protein 8.6 g/dL (6.3-8.2)
--- NOTE | 2022-08-08 14:54 | ED_ITS ---
HPI - Abdominal Pain <Madan Tony MD - Last Filed: 08/11/22 13:21> General Chief Complaint: Abdominal Pain Stated Complaint: V/DIZZY/DISORIENTED Time Seen by Provider: 08/08/22 14:47 Source: patient Mode of arrival: Ambulatory History of Present Illness HPI narrative: Patient brought here by from home for left side abdominal pain with nausea and vomiting and chills. Patient has history of ulcerative colitis. She states the pain feels like ulcerative colitis. However her child has been sick over the weekend with vomiting. Patient is on immunosuppression for ulcerative colitis. Denies any black or bloody stools. She thinks something viral from her child he have affected her and triggered her ulcerative colitis. Pain does not radiate. No urinary complaints. No black or bloody stools. Related Data Home Medications Medication Instructions Recorded Confirmed vedolizumab 300 mg intravenous 300 mg IV Q4W 06/02/21 01/31/22 solution (Entyvio) duloxetine 20 mg capsule,delayed 20 mg PO DAILY 07/24/22 07/24/22 release (Cymbalta) pantoprazole 40 mg granules 40 mg PO BID 07/24/22 07/24/22 delayed-release for susp in packet Previous Rx's Medication Instructions Recorded labetalol 200 mg tablet 200 mg PO BID #180 tabs 07/24/22 hydrocodone 5 mg-acetaminophen 325 1 tab PO Q6H PRN pain #7 tabs 08/08/22 mg tablet metoclopramide HCl 10 mg tablet 10 mg PO Q6H PRN nausea and 08/08/22 (Reglan) vomiting #7 tabs Allergies Allergy/AdvReac Type Severity Reaction Status Date / Time Latex, Natural Rubber Allergy Mild Verified 07/24/22 16:18 Review of Systems <Madan Tony MD - Last Filed: 08/11/22 13:21> Review of Systems Narrative: GENERAL: negative chills, fatigue, malaise, fever, sweats. HEENT: negative sinus pain, ear pain, sore throat RESPIRATORY: negative dyspnea, cough CARDIOVASCULAR: negative chest pain, palpitations GASTROINTESTINAL: Positive nausea, vomiting, abdominal pain : negative dysuria, frequency, hematuria MUSCULOSKELETAL: negative muscle or bony pain SKIN: negative rash, skin lesions NEUROLOGIC: negative weakness, numbness ROS Unobtainable: All systems reviewed & are unremarkable except as noted in HPI and below Patient History <Madan Tony MD - Last Filed: 08/11/22 13:21> Medical History Anxiety (~2017) Carpal tunnel syndrome (~2012) Chronic back pain (~2018) GERD (gastroesophageal reflux disease) (~2010) GI bleeding Hypertension (~2013) Infertility (~2016) Irregular menstrual cycle Painful menstrual periods Ulcerative colitis (~2010) Vertigo (~2012) Surgical History Anesthesia History of section (~09/2020) History of cholecystectomy (~12/2009) History of tonsillectomy (~06/2017) Ovarian cyst (~12/2017) Family History Father History of heart disease Hypertension Mother Mental health problem Grandfather History of heart disease Hyperlipidemia Hypertension Grandmother Hypertension Social History Smoking Status: Never smoker Smoking Status: Never smoker alcohol intake frequency: holidays/special occasions only Substance Use Type: does not use Exam <Madan Tony MD - Last Filed: 08/11/22 13:21> Narrative Exam Narrative: GENERAL: in no distress, not toxic not dyspneic HEAD: Normocephalic. EYES: Pupils equal round ENT: Mucous membranes moist. NECK: Trachea midline. CARDIOVASCULAR: Regular rate and rhythm without murmurs RESPIRATORY: Clear to auscultation. Breath sounds equal bilaterally. No wheezes, rales, or rhonchi. GASTROINTESTINAL: Abdomen soft, reproducible left lower quadrant left upper quadrant tenderness. No peritoneal signs. No pain out of proportion to exam. Bowel sounds are present. No CVA tenderness EXTREMITIES: No gross deformities. BACK: No flank tenderness. NEURO: AOx4. SKIN: Warm and dry PSYCH: Not anxious, is cooperative Initial Vital Signs Initial Vital Signs: Vital Signs Temperature 96.1 F L 08/08/22 13:04 Pulse Rate 123 H 08/08/22 13:04 Respiratory Rate 18 08/08/22 13:04 Blood Pressure 143/98 H 08/08/22 13:04 Pulse Oximetry 97 08/08/22 13:04 Oxygen Delivery Method Room Air 08/08/22 13:04 <Keyanna Vick DO - Last Filed: 08/09/22 06:06> Initial Vital Signs Initial Vital Signs: Vital Signs Temperature 96.1 F L 08/08/22 13:04 Pulse Rate 123 H 08/08/22 13:04 Respiratory Rate 18 08/08/22 13:04 Blood Pressure 143/98 H 08/08/22 13:04 Pulse Oximetry 97 08/08/22 13:04 Oxygen Delivery Method Room Air 08/08/22 13:04 Course <Madan Tony MD - Last Filed: 08/11/22 13:21> Orders Ordered: Discontinued Medications Sodium Chloride (Normal Saline 0.9%) 1,000 mls @ 1,000 mls/hr IV BOLUS ONE Stop: 08/08/22 14:29 Last Infusion: 08/08/22 14:34 Dose: 0 mls/hr Documented By: Admin: 08/08/22 13:50 Dose: 1,000 mls/hr Documented By: KALEY Sodium Chloride (Normal Saline 0.9%) 1,000 mls @ 1,000 mls/hr IV BOLUS ONE Stop: 08/08/22 15:51 Last Infusion: 08/08/22 16:35 Dose: 0 mls/hr Documented By: Admin: 08/08/22 15:06 Dose: 1,000 mls/hr Documented By: KALEY Sodium Chloride (Normal Saline 0.9%) 1,000 mls @ 1,000 mls/hr IV BOLUS ONE Stop: 08/08/22 18:32 Last Infusion: 08/08/22 18:54 Dose: 0 mls/hr Documented By: Admin: 08/08/22 17:48 Dose: 1,000 mls/hr Documented By: KALEY Metoclopramide HCl (Metoclopramide 10 Mg/2 Ml Inj) 10 mg IV NOW ONE Stop: 08/08/22 17:34 Last Admin: 08/08/22 17:48 Dose: 10 mg Documented By: KALEY Morphine Sulfate (Morphine 4 Mg/Ml Inj) 4 mg IV NOW ONE Stop: 08/08/22 14:53 Last Admin: 08/08/22 15:05 Dose: 4 mg Documented By: KALEY Morphine Sulfate (Morphine 4 Mg/Ml Inj) 4 mg IV NOW ONE Stop: 08/08/22 17:34 Last Admin: 08/08/22 17:48 Dose: 4 mg Documented By: KALEY Ondansetron HCl (Ondansetron 4 Mg Odt) 4 mg PO NOW PRN PRN Reason: Nausea And Vomiting Ondansetron HCl (Ondansetron 4 Mg/2 Ml Inj) 4 mg IV NOW PRN PRN Reason: Nausea And Vomiting Last Admin: 08/08/22 13:50 Dose: 4 mg Documented By: KALEY Ondansetron HCl (Ondansetron 4 Mg/2 Ml Inj) 4 mg IV NOW ONE Stop: 08/08/22 14:53 Last Admin: 08/08/22 15:05 Dose: 4 mg Documented By: KALEY Vital Signs Vital signs: Vital Signs - 8 hr 08/08/22 13:04 08/08/22 13:35 08/08/22 13:35 Temperature 96.1 F L Pulse Rate 123 H 102 H Respiratory Rate 18 Blood Pressure 143/98 H 144/86 H Pulse Oximetry 97 96 Oxygen Delivery Method Room Air Room Air 08/08/22 14:00 08/08/22 14:30 08/08/22 14:43 Temperature Pulse Rate 95 H 94 H Respiratory Rate Blood Pressure 126/77 Pulse Oximetry 95 96 Oxygen Delivery Method Room Air Room Air 08/08/22 14:43 08/08/22 15:00 08/08/22 15:00 Temperature Pulse Rate 97 H 95 H Respiratory Rate Blood Pressure 135/86 Pulse Oximetry 96 Oxygen Delivery Method Room Air 08/08/22 15:30 08/08/22 15:30 08/08/22 16:00 Temperature Pulse Rate 95 H 93 H Respiratory Rate Blood Pressure 131/78 Pulse Oximetry 96 97 Oxygen Delivery Method Room Air Room Air 08/08/22 16:01 08/08/22 16:01 08/08/22 16:30 Temperature Pulse Rate 91 H Respiratory Rate Blood Pressure 131/75 133/75 Pulse Oximetry 95 Oxygen Delivery Method Room Air 08/08/22 16:30 08/08/22 17:00 08/08/22 17:00 Temperature Pulse Rate 94 H 100 H Respiratory Rate Blood Pressure 134/81 Pulse Oximetry 95 97 Oxygen Delivery Method Room Air Room Air 08/08/22 17:30 08/08/22 17:30 08/08/22 18:00 Temperature Pulse Rate 105 H Respiratory Rate Blood Pressure 138/80 133/75 Pulse Oximetry 97 Oxygen Delivery Method Room Air 08/08/22 18:00 08/08/22 18:30 08/08/22 18:30 Temperature Pulse Rate 95 H 96 H Respiratory Rate Blood Pressure 126/72 Pulse Oximetry 97 97 Oxygen Delivery Method Room Air Room Air <Keyanna Vick, - Last Filed: 08/09/22 06:06> Orders Ordered: Discontinued Medications Sodium Chloride (Normal Saline 0.9%) 1,000 mls @ 1,000 mls/hr IV BOLUS ONE Stop: 08/08/22 14:29 Last Infusion: 08/08/22 14:34 Dose: 0 mls/hr Documented By: Admin: 08/08/22 13:50 Dose: 1,000 mls/hr Documented By: KALEY Sodium Chloride (Normal Saline 0.9%) 1,000 mls @ 1,000 mls/hr IV BOLUS ONE Stop: 08/08/22 15:51 Last Infusion: 08/08/22 16:35 Dose: 0 mls/hr Documented By: Admin: 08/08/22 15:06 Dose: 1,000 mls/hr Documented By: KALEY Sodium Chloride (Normal Saline 0.9%) 1,000 mls @ 1,000 mls/hr IV BOLUS ONE Stop: 08/08/22 18:32 Last Infusion: 08/08/22 18:54 Dose: 0 mls/hr Documented By: Admin: 08/08/22 17:48 Dose: 1,000 mls/hr Documented By: KALEY Metoclopramide HCl (Metoclopramide 10 Mg/2 Ml Inj) 10 mg IV NOW ONE Stop: 08/08/22 17:34 Last Admin: 08/08/22 17:48 Dose: 10 mg Documented By: KALEY Morphine Sulfate (Morphine 4 Mg/Ml Inj) 4 mg IV NOW ONE Stop: 08/08/22 14:53 Last Admin: 08/08/22 15:05 Dose: 4 mg Documented By: KALEY Morphine Sulfate (Morphine 4 Mg/Ml Inj) 4 mg IV NOW ONE Stop: 08/08/22 17:34 Last Admin: 08/08/22 17:48 Dose: 4 mg Documented By: KALEY Ondansetron HCl (Ondansetron 4 Mg Odt) 4 mg PO NOW PRN PRN Reason: Nausea And Vomiting Ondansetron HCl (Ondansetron 4 Mg/2 Ml Inj) 4 mg IV NOW PRN PRN Reason: Nausea And Vomiting Last Admin: 08/08/22 13:50 Dose: 4 mg Documented By: KALEY Ondansetron HCl (Ondansetron 4 Mg/2 Ml Inj) 4 mg IV NOW ONE Stop: 08/08/22 14:53 Last Admin: 08/08/22 15:05 Dose: 4 mg Documented By: KALEY Vital Signs Vital signs: Vital Signs - 8 hr 08/08/22 13:04 08/08/22 13:35 08/08/22 13:35 Temperature 96.1 F L Pulse Rate 123 H 102 H Respiratory Rate 18 Blood Pressure 143/98 H 144/86 H Pulse Oximetry 97 96 Oxygen Delivery Method Room Air Room Air 08/08/22 14:00 08/08/22 14:30 08/08/22 14:43 Temperature Pulse Rate 95 H 94 H Respiratory Rate Blood Pressure 126/77 Pulse Oximetry 95 96 Oxygen Delivery Method Room Air Room Air 08/08/22 14:43 08/08/22 15:00 08/08/22 15:00 Temperature Pulse Rate 97 H 95 H Respiratory Rate Blood Pressure 135/86 Pulse Oximetry 96 Oxygen Delivery Method Room Air 08/08/22 15:30 08/08/22 15:30 08/08/22 16:00 Temperature Pulse Rate 95 H 93 H Respiratory Rate Blood Pressure 131/78 Pulse Oximetry 96 97 Oxygen Delivery Method Room Air Room Air 08/08/22 16:01 08/08/22 16:01 08/08/22 16:30 Temperature Pulse Rate 91 H Respiratory Rate Blood Pressure 131/75 133/75 Pulse Oximetry 95 Oxygen Delivery Method Room Air 08/08/22 16:30 08/08/22 17:00 08/08/22 17:00 Temperature Pulse Rate 94 H 100 H Respiratory Rate Blood Pressure 134/81 Pulse Oximetry 95 97 Oxygen Delivery Method Room Air Room Air 08/08/22 17:30 08/08/22 17:30 08/08/22 18:00 Temperature Pulse Rate 105 H Respiratory Rate Blood Pressure 138/80 133/75 Pulse Oximetry 97 Oxygen Delivery Method Room Air 08/08/22 18:00 08/08/22 18:30 06/07/23 18:30 Temperature Pulse Rate 95 H 96 H Respiratory Rate Blood Pressure 126/72 Pulse Oximetry 97 97 Oxygen Delivery Method Room Air Room Air MDM - Abdominal Pain <Madan Tony MD - Last Filed: 08/11/22 13:21> Lab Data 08/08/22 13:30 08/08/22 13:30 Labs: Lab Results 08/08/22 08/08/22 08/08/22 Range/Units 13:30 13:30 15:14 WBC 11.2 H (4.5-11.0) X10^3/uL RBC 4.93 (4.0-5.2) X10^6/uL Hgb 13.6 (12.0-16.0) g/dL Hct 40.4 (36-46) % MCV 81.9 (80-100) fL MCH 27.6 (26-34) PG MCHC 33.7 (30-36) % RDW 15.2 H (11.6-14.8) % Plt Count 376 (150-400) X10^3/uL Neut % (Auto) 88.9 H (50-75) % Lymph % (Auto) 6.3 L (25-40) % [place] % (Auto) 3.9 (3-14) % Eos % (Auto) 0.6 L (2-4) % Baso % (Auto) 0.3 (0-2) % Neut # (Auto) 9900 H (9572-7094) /uL Lymph # (Auto) 700 L (4573-9430) /uL [place] # (Auto) 400 (0-900) /uL Eos # (Auto) 100 (0-450) /uL Baso # (Auto) 0 (0-100) /uL Sodium 135 L (137-145) mmol/L Potassium 4.3 (3.4-5.1) mmol/L Chloride 98 (98-107) mmol/L Carbon Dioxide 27 (22-32) mmol/L BUN 13 (7-17) mg/dL Creatinine 0.64 (0.52-1.04) mg/dL Estimated GFR > 60 (>60) mL/min BUN/Creatinine Ratio 20.3 (6-22) Glucose 125 H (70-100) mg/dL Calcium 9.4 (8.4-10.2) mg/dL Total Bilirubin 0.6 (0.2-1.3) mg/dL AST 23 (14-36) IU/L ALT 18 (<35) IU/L Alkaline Phosphatase 122 (38-126) U/L Total Protein 8.6 H (6.3-8.2) g/dL Albumin 4.9 (3.5-5.0) g/dL Globulin 3.7 (1.7-4.1) g/dL Albumin/Globulin Ratio 1.3 (1.0-2.8) Lipase 32 (23-300) U/L Ur Bilirubin Confirm (Negative) Urine RBC (0-5/HPF) Urine WBC (0-5/HPF) Ur Squamous Epith Cells (0-5/HPF) Urine Bacteria (None) Ur Culture Indicated? Chlamy pneumoniae PCR Not detected (Not Detect) Adenovirus (PCR) Not detected (Not Detect) B. pertussis DNA (PCR) Not detected (Not Detecte) B.parapertussis DNA PCR Not detected (Not Detecte) Coronavirus OC43 (PCR) Not detected (Not Detect) Coronavirus HKU1 (PCR) Not detected (Not Detect) Coronavirus 229E (PCR) Not detected (Not Detect) SARS-CoV-2 (PCR) Not detected (Not Detecte) Coronavirus NL63 (PCR) Not detected (Not Detect) Human Metapneumovir PCR Not detected (Not Detect) Influenza Type A (PCR) Not detected (Not Detect) Influenza Type B (PCR) Not detected (Not Detect) M. pneumoniae (PCR) Not detected (Not Detect) Parainfluenza 1 (PCR) Not detected (Not Detect) Parainfluenza 2 (PCR) Not detected (Not Detect) Parainfluenza 3 (PCR) Not detected (Not Detect) Parainfluenza 4 (PCR) Not detected (Not Detect) RSV (PCR) Not detected (Not Detect) Entero/Rhino (PCR) Not detected (Not Detect) 08/08/22 08/08/22 Range/Units 15:15 15:15 WBC (4.5-11.0) X10^3/uL RBC (4.0-5.2) X10^6/uL Hgb (12.0-16.0) g/dL Hct (36-46) % MCV (80-100) fL MCH (26-34) PG MCHC (30-36) % RDW (11.6-14.8) % Plt Count (150-400) X10^3/uL Neut % (Auto) (50-75) % Lymph % (Auto) (25-40) % [place] % (Auto) (3-14) % Eos % (Auto) (2-4) % Baso % (Auto) (0-2) % Neut # (Auto) (7646-0415) /uL Lymph # (Auto) (5281-7689) /uL [place] # (Auto) (0-900) /uL Eos # (Auto) (0-450) /uL Baso # (Auto) (0-100) /uL Sodium (137-145) mmol/L Potassium (3.4-5.1) mmol/L Chloride (98-107) mmol/L Carbon Dioxide (22-32) mmol/L BUN (7-17) mg/dL Creatinine (0.52-1.04) mg/dL Estimated GFR (>60) mL/min BUN/Creatinine Ratio (6-22) Glucose (70-100) mg/dL Calcium (8.4-10.2) mg/dL Total Bilirubin (0.2-1.3) mg/dL AST (14-36) IU/L ALT (<35) IU/L Alkaline Phosphatase (38-126) U/L Total Protein (6.3-8.2) g/dL Albumin (3.5-5.0) g/dL Globulin (1.7-4.1) g/dL Albumin/Globulin Ratio (1.0-2.8) Lipase (23-300) U/L Ur Bilirubin Confirm Negative (Negative) Urine RBC 0-1/hpf (0-5/HPF) Urine WBC None seen (0-5/HPF) Ur Squamous Epith Cells 5-10 /hpf H (0-5/HPF) Urine Bacteria Few (2-10) H (None) Ur Culture Indicated? Specimen cultured Chlamy pneumoniae PCR (Not Detect) Adenovirus (PCR) (Not Detect) B. pertussis DNA (PCR) (Not Detecte) B.parapertussis DNA PCR (Not Detecte) Coronavirus OC43 (PCR) (Not Detect) Coronavirus HKU1 (PCR) (Not Detect) Coronavirus 229E (PCR) (Not Detect) SARS-CoV-2 (PCR) (Not Detecte) Coronavirus NL63 (PCR) (Not Detect) Human Metapneumovir PCR (Not Detect) Influenza Type A (PCR) (Not Detect) Influenza Type B (PCR) (Not Detect) M. pneumoniae (PCR) (Not Detect) Parainfluenza 1 (PCR) (Not Detect) Parainfluenza 2 (PCR) (Not Detect) Parainfluenza 3 (PCR) (Not Detect) Parainfluenza 4 (PCR) (Not Detect) RSV (PCR) (Not Detect) Entero/Rhino (PCR) (Not Detect) Point of care testing: Point of Care Testing Test Results Negative Urine Dip Bedside Urine Glucose Negative Bedside Urine Bilirubin + 1 Bedside Urine Ketone +/- 5 Urine Specific [place] 1.010 Bedside Urine Occult Blood - Negative Bedside Urine pH 7.5 Bedside Urine Protein +/- 15 Bedside Urine Urobilinogen - Negative Bedside Urine Nitrite - Negative Bedside Urine Leukocytes - Negative Esterase Imaging Data CT scan - abdomen/pelvis: Radiologist's Impression: [place] [address] CT Scan Report Signed Patient: Berkley Lim MR#: [id number] : 1990 Acct:[id number] Age/Sex: 32 / F Date of Service: 08/08/22 Loc: ED Accession Number: [id number] ?? Procedure: CT abdomen pelvis w con Ordering Provider: Madan Tony MD PROCEDURE:? CT ABDOMEN PELVIS W CON ? INDICATIONS:? IV contrast only/left abdominal pain/nausea vomiting ? TECHNIQUE:? After the administration of intravenous contrast, axial sections acquired from the lung bases to the pubic symphysis.? Coronal and sagittal reformats were performed.? For radiation dose reduction, the following was used:? automated exposure control, adjustment of mA and/or kV according to patient size.? ? COMPARISON:? None. ? FINDINGS:? Image quality:? Excellent.? ? Lung bases:? Unremarkable. Heart:? No significant findings. ? ABDOMEN: Liver:? Unremarkable.? ? Gallbladder:? Surgically absent.? ? Biliary ducts:? Subtle central intrahepatic biliary dilation, slightly more pronounced from prior.? This is within normal limits status post cholecystectomy. Pancreas:? Unremarkable.? ? Spleen:? Unremarkable.? ? Adrenal Glands:? Unremarkable.? ? Kidneys and Ureters:? Unremarkable.? ? ? Stomach and Bowel:? Mild thickening of the rectal submucosa.? Normal colonic caliber.? Appendix is unremarkable. Peritoneum:? No abnormal intraperitoneal fluid.? No free air.? ? Ventral Wall: ? No hernias.? Abdominal Nodes:? No retroperitoneal or mesenteric adenopathy by size criteria.? Vessels:? Aorta and inferior vena cava are normal in size.? ? PELVIS: Pelvic Organs:? Unremarkable.? ? Bladder:? Unremarkable.? ? Pelvic Nodes: No enlarged lymph nodes.? Miscellaneous: No hernias are seen. ? ? ? Bones:? Trace sacroiliitis.? IMPRESSION:? Mild thickening of the rectum, which may indicate proctitis in the setting of ulcerative colitis. ? There is subtle intrahepatic biliary dilation, more pronounced compared with prior.? Consider MRI/MRCP to exclude developing PSC. ? Trace sacroiliitis.? ? Dictated by: Jasmeet Prado M.D. on 08/08/2022 at 16:10 ? ? Approved by: Jasmeet Prado M.D. on 08/08/2022 at 16:14 ? MDM Narrative Medical decision making narrative: Patient brought here by from home for left side abdominal pain with nausea and vomiting and chills. Patient has history of ulcerative colitis. She states the pain feels like ulcerative colitis. However her child has been sick over the weekend with vomiting. Patient is on immunosuppression for ulcerative colitis. Denies any black or bloody stools. She thinks something viral from her child he have affected her and triggered her ulcerative colitis. Pain does not radiate. No urinary complaints. No black or bloody stools. After history and exam CBC CMP urinalysis test CT abdomen pelvis morphine Zofran normal saline viral swab [facility] CC: Nausea vomiting abdominal pain Complicating co-morbidities: Ulcerative colitis Data collected from: Patient and Medical records reviewed: No reason visit in the emergency department for this complaint Differential considered: Includes but not limited to ulcerative colitis flare- up viral gastroenteritis bowel obstruction UTI kidney stone Exam documented above, pertinent findings include: Tender left upper and lower abdomen Lab Test results independently reviewed as above. Pertinent findings: WBC 11.2 hemoglobin 13.6 sodium 135 potassium 4.3 BUN 13 creatinine 0.64 GFR greater than 60 glucose 125 AST 23 ALT 18 Urine negative negative leukocyte esterase negative nitrite Viral swab negative Imaging studies independently reviewed: CT abdomen pelvis mild thickening of the rectum which may indicate proctitis. Subtle intrahepatic biliary dilation Consultations: 5:[address] Rolle regarding CT imaging as well as laboratory studies and liver enzymes. No MRCP indicated this time. Patient does not have a gallbladder. This does not clinically correlate or need for MRI MRCP. Recommends IV hydration pain control and likely need to be discharged home and follow up with her GI doctor. Treatments: Morphine Zofran normal saline Re-evaluations: 5:30 p.m.. Re-evaluated patient. Patient states nausea is returning as well as the abdominal pain but not as intense pain. Patient does feel palpitations. She is tachycardic at 1:05 a.m.. However she states she is not had any sensation or feel like urinating. Will order another 1 L of normal saline. She states she did vomit a lot at home. She denies any rectal pain. I reviewed CT imaging and my discussion with general surgeon. She denies any right upper quadrant pain or rectal pain. She agrees with treatment plan with repeat normal saline as well as nausea medication and pain medication. She agrees at this time no steroids. Discussion: Diagnosis: 6:00 p.m., sign out to Dr. Vick, patient just Re medicated. Need to reassess for pain control and nausea control. <Keyanna Vick, DO - Last Filed: 08/09/22 06:06> Lab Data Labs: Lab Results 08/08/22 08/08/22 08/08/22 Range/Units 13:30 13:30 15:14 WBC 11.2 H (4.5-11.0) X10^3/uL RBC 4.93 (4.0-5.2) X10^6/uL Hgb 13.6 (12.0-16.0) g/dL Hct 40.4 (36-46) % MCV 81.9 (80-100) fL MCH 27.6 (26-34) PG MCHC 33.7 (30-36) % RDW 15.2 H (11.6-14.8) % Plt Count 376 (150-400) X10^3/uL Neut % (Auto) 88.9 H (50-75) % Lymph % (Auto) 6.3 L (25-40) % [place] % (Auto) 3.9 (3-14) % Eos % (Auto) 0.6 L (2-4) % Baso % (Auto) 0.3 (0-2) % Neut # (Auto) 9900 H (9308-7160) /uL Lymph # (Auto) 700 L (2156-6593) /uL [place] # (Auto) 400 (0-900) /uL Eos # (Auto) 100 (0-450) /uL Baso # (Auto) 0 (0-100) /uL Sodium 135 L (137-145) mmol/L Potassium 4.3 (3.4-5.1) mmol/L Chloride 98 (98-107) mmol/L Carbon Dioxide 27 (22-32) mmol/L BUN 13 (7-17) mg/dL Creatinine 0.64 (0.52-1.04) mg/dL Estimated GFR > 60 (>60) mL/min BUN/Creatinine Ratio 20.3 (6-22) Glucose 125 H (70-100) mg/dL Calcium 9.4 (8.4-10.2) mg/dL Total Bilirubin 0.6 (0.2-1.3) mg/dL AST 23 (14-36) IU/L ALT 18 (<35) IU/L Alkaline Phosphatase 122 (38-126) U/L Total Protein 8.6 H (6.3-8.2) g/dL Albumin 4.9 (3.5-5.0) g/dL Globulin 3.7 (1.7-4.1) g/dL Albumin/Globulin Ratio 1.3 (1.0-2.8) Lipase 32 (23-300) U/L Ur Bilirubin Confirm (Negative) Urine RBC (0-5/HPF) Urine WBC (0-5/HPF) Ur Squamous Epith Cells (0-5/HPF) Urine Bacteria (None) Ur Culture Indicated? Chlamy pneumoniae PCR Not detected (Not Detect) Adenovirus (PCR) Not detected (Not Detect) B. pertussis DNA (PCR) Not detected (Not Detecte) B.parapertussis DNA PCR Not detected (Not Detecte) Coronavirus OC43 (PCR) Not detected (Not Detect) Coronavirus HKU1 (PCR) Not detected (Not Detect) Coronavirus 229E (PCR) Not detected (Not Detect) SARS-CoV-2 (PCR) Not detected (Not Detecte) Coronavirus NL63 (PCR) Not detected (Not Detect) Human Metapneumovir PCR Not detected (Not Detect) Influenza Type A (PCR) Not detected (Not Detect) Influenza Type B (PCR) Not detected (Not Detect) M. pneumoniae (PCR) Not detected (Not Detect) Parainfluenza 1 (PCR) Not detected (Not Detect) Parainfluenza 2 (PCR) Not detected (Not Detect) Parainfluenza 3 (PCR) Not detected (Not Detect) Parainfluenza 4 (PCR) Not detected (Not Detect) RSV (PCR) Not detected (Not Detect) Entero/Rhino (PCR) Not detected (Not Detect) 08/08/22 08/08/22 Range/Units 15:15 15:15 WBC (4.5-11.0) X10^3/uL RBC (4.0-5.2) X10^6/uL Hgb (12.0-16.0) g/dL Hct (36-46) % MCV (80-100) fL MCH (26-34) PG MCHC (30-36) % RDW (11.6-14.8) % Plt Count (150-400) X10^3/uL Neut % (Auto) (50-75) % Lymph % (Auto) (25-40) % [place] % (Auto) (3-14) % Eos % (Auto) (2-4) % Baso % (Auto) (0-2) % Neut # (Auto) (0868-4215) /uL Lymph # (Auto) (8332-3949) /uL [place] # (Auto) (0-900) /uL Eos # (Auto) (0-450) /uL Baso # (Auto) (0-100) /uL Sodium (137-145) mmol/L Potassium (3.4-5.1) mmol/L Chloride (98-107) mmol/L Carbon Dioxide (22-32) mmol/L BUN (7-17) mg/dL Creatinine (0.52-1.04) mg/dL Estimated GFR (>60) mL/min BUN/Creatinine Ratio (6-22) Glucose (70-100) mg/dL Calcium (8.4-10.2) mg/dL Total Bilirubin (0.2-1.3) mg/dL AST (14-36) IU/L ALT (<35) IU/L Alkaline Phosphatase (38-126) U/L Total Protein (6.3-8.2) g/dL Albumin (3.5-5.0) g/dL Globulin (1.7-4.1) g/dL Albumin/Globulin Ratio (1.0-2.8) Lipase (23-300) U/L Ur Bilirubin Confirm Negative (Negative) Urine RBC 0-1/hpf (0-5/HPF) Urine WBC None seen (0-5/HPF) Ur Squamous Epith Cells 5-10 /hpf H (0-5/HPF) Urine Bacteria Few (2-10) H (None) Ur Culture Indicated? Specimen cultured Chlamy pneumoniae PCR (Not Detect) Adenovirus (PCR) (Not Detect) B. pertussis DNA (PCR) (Not Detecte) B.parapertussis DNA PCR (Not Detecte) Coronavirus OC43 (PCR) (Not Detect) Coronavirus HKU1 (PCR) (Not Detect) Coronavirus 229E (PCR) (Not Detect) SARS-CoV-2 (PCR) (Not Detecte) Coronavirus NL63 (PCR) (Not Detect) Human Metapneumovir PCR (Not Detect) Influenza Type A (PCR) (Not Detect) Influenza Type B (PCR) (Not Detect) M. pneumoniae (PCR) (Not Detect) Parainfluenza 1 (PCR) (Not Detect) Parainfluenza 2 (PCR) (Not Detect) Parainfluenza 3 (PCR) (Not Detect) Parainfluenza 4 (PCR) (Not Detect) RSV (PCR) (Not Detect) Entero/Rhino (PCR) (Not Detect) Point of care testing: Point of Care Testing Test Results Negative Urine Dip Bedside Urine Glucose Negative Bedside Urine Bilirubin + 1 Bedside Urine Ketone +/- 5 Urine Specific [place] 1.010 Bedside Urine Occult Blood - Negative Bedside Urine pH 7.5 Bedside Urine Protein +/- 15 Bedside Urine Urobilinogen - Negative Bedside Urine Nitrite - Negative Bedside Urine Leukocytes - Negative Esterase MDM Narrative Medical decision making narrative: Patient brought here by from home for left side abdominal pain with nausea and vomiting and chills. Patient has history of ulcerative colitis. She states the pain feels like ulcerative colitis. However her child has been sick over the weekend with vomiting. Patient is on immunosuppression for ulcerative colitis. Denies any black or bloody stools. She thinks something viral from her child he have affected her and triggered her ulcerative colitis. Pain does not radiate. No urinary complaints. No black or bloody stools. After history and exam CBC CMP urinalysis test CT abdomen pelvis morphine Zofran normal saline viral swab MDM CC: Nausea vomiting abdominal pain Complicating co-morbidities: Ulcerative colitis Data collected from: Patient and Medical records reviewed: No reason visit in the emergency department for this complaint Differential considered: Includes but not limited to ulcerative colitis flare- up viral gastroenteritis bowel obstruction UTI kidney stone Exam documented above, pertinent findings include: Tender left upper and lower abdomen Lab Test results independently reviewed as above. Pertinent findings: WBC 11.2 hemoglobin 13.6 sodium 135 potassium 4.3 BUN 13 creatinine 0.64 GFR greater than 60 glucose 125 AST 23 ALT 18 Urine negative negative leukocyte esterase negative nitrite Viral swab negative Imaging studies independently reviewed: CT abdomen pelvis mild thickening of the rectum which may indicate proctitis. Subtle intrahepatic biliary dilation Consultations: 5:[address] Rolle regarding CT imaging as well as laboratory studies and liver enzymes. No MRCP indicated this time. Patient does not have a gallbladder. This does not clinically correlate or need for MRI MRCP. Recommends IV hydration pain control and likely need to be discharged home and follow up with her GI doctor. Treatments: Morphine Zofran normal saline Re-evaluations: 5:30 p.m.. Re-evaluated patient. Patient states nausea is returning as well as the abdominal pain but not as intense pain. Patient does feel palpitations. She is tachycardic at 1:05 a.m.. However she states she is not had any sensation or feel like urinating. Will order another 1 L of normal saline. She states she did vomit a lot at home. She denies any rectal pain. I reviewed CT imaging and my discussion with general surgeon. She denies any right upper quadrant pain or rectal pain. She agrees with treatment plan with repeat normal saline as well as nausea medication and pain medication. She agrees at this time no steroids. Discussion: Diagnosis: 6:00 p.m., sign out to Dr. Vick, patient just Re medicated. Need to reassess for pain control and nausea control. 08/08/22 Mank: Patient signed out to myself by Dr. Tony. Patient is feeling much improved about an hour after she received pain medications. She is feeling like she would like to return home. I also reviewed her findings from today, Dr. Chen as well as before. Also reviewed his discussion with general surgeon. She does have follow up with Gastroenterology as well. Plan for discharge home with short course of antinausea and pain medication and reviewed return precautions. Patient's tachycardia has improved, she is been afebrile vitals appear much appropriate. Patient has mild leukocytosis, normal renal function, LFTs and electrolytes. Urine showed 5-10 squamous epithelials and few bacteria sent for culture active urinary symptoms at this time so will hold off. Imaging shows some mild thickening of the rectum patient's discomfort is more on the left and patient has some subtle intrahepatic biliary dilation more pronounced than prior patient's symptoms not in this area with normal LFTs and some trace sacroiliitis felt more appropriate for follow up with GI. Discharge Plan Departure Patient Disposition: Home Clinical Impression: Abdominal pain Instructions: DI for Abdominal Pain-Adult Activity Restrictions/Additional Instructions: Follow-up with your waste disposal leakage tester if your symptoms are persistent or not improving. Your labs today were overall reassuring there was some mild thickening of the rectal area, and some subtle intrahepatic biliary dilation slightly more compressed pronounced than prior imaging. Please share these findings with your waste disposal leakage tester. You may take Reglan 1 tablet every 6 hours as needed for nausea vomiting. You can take Boring 1-2 tablets every 6 hours as needed for pain. This medication can make you sleepy do not drive, perform hazardous activities or make any major decisions while taking it. This medication will make you constipated please take a stool softener once to twice daily until stools are soft and regular. Prescription sent to [facility] in [place]. Please return for fevers, persisting or worsening symptoms, vomiting that will not stop, signs of dehydration, increasing abdominal back flank pain, difficulty with urination, black or bloody stools or other new or concerning changes. Prescriptions: New metoclopramide HCl [Reglan] 10 mg tablet 10 mg PO Q6H PRN (Reason: nausea and vomiting) Qty: 7 0RF hydrocodone-acetaminophen 5-325 mg tablet 1 tab PO Q6H PRN (Reason: pain) Qty: 7 0RF No Action Entyvio 300 mg recon soln 300 mg IV Q4W Rx Instructions: administer week 6 of treatment pantoprazole [address] for susp in packet 40 mg PO BID duloxetine [Cymbalta] 20 mg capsule,delayed release(DR/EC) 20 mg PO DAILY labetalol 200 mg tablet 200 mg PO BID Qty: 180 1RF Referrals: Clemente Mosqueda MD [Primary Care Provider] - Stand Alone Forms: Patient Portal/API
--- NOTE | 2022-08-08 14:54 | DI.CT.S_ITS ---
PROCEDURE: CT ABDOMEN PELVIS W CON INDICATIONS: IV contrast only/left abdominal pain/nausea vomiting TECHNIQUE: After the administration of intravenous contrast, axial sections acquired from the lung bases to the pubic symphysis. Coronal and sagittal reformats were performed. For radiation dose reduction, the following was used: automated exposure control, adjustment of mA and/or kV according to patient size. COMPARISON: None. FINDINGS: Image quality: Excellent. Lung bases: Unremarkable. Heart: No significant findings. ABDOMEN: Liver: Unremarkable. Gallbladder: Surgically absent. Biliary ducts: Subtle central intrahepatic biliary dilation, slightly more pronounced from prior. This is within normal limits status post cholecystectomy. Pancreas: Unremarkable. Spleen: Unremarkable. Adrenal Glands: Unremarkable. Kidneys and Ureters: Unremarkable. Stomach and Bowel: Mild thickening of the rectal submucosa. Normal colonic caliber. Appendix is unremarkable. Peritoneum: No abnormal intraperitoneal fluid. No free air. Ventral Wall: No hernias. Abdominal Nodes: No retroperitoneal or mesenteric adenopathy by size criteria. Vessels: Aorta and inferior vena cava are normal in size. PELVIS: Pelvic Organs: Unremarkable. Bladder: Unremarkable. Pelvic Nodes: No enlarged lymph nodes. Miscellaneous: No hernias are seen. Bones: Trace sacroiliitis. IMPRESSION: Mild thickening of the rectum, which may indicate proctitis in the setting of ulcerative colitis. There is subtle intrahepatic biliary dilation, more pronounced compared with prior. Consider MRI/MRCP to exclude developing PSC. Trace sacroiliitis. Dictated by: Jasmeet Prado M.D. on 08/08/2022 at 16:10 Approved by: Jasmeet Prado M.D. on 08/08/2022 at 16:14
[2022-08-08] MEDS: MORPHINE 4 MG/ML INJ IV ×2 (15:05→17:48)
[2022-08-08 15:57] LABS: Ictotest Urine Negative (Negative)
[2022-08-08 16:00] LABS: Bacteria Urine Few (2-10); Culture Indicated Urine Specimen Cultured; RBC Urine 0-1/HPF (0-5/HPF); Squamous Epithelial Cell Urine 5-10 /HPF (0-5/HPF); WBC Urine None Seen (0-5/HPF)
[2022-08-08 16:27] LABS: Adenovirus Not Detected (Not Detect); B. parapertussis Not Detected (Not Detecte); Bordetella pertussis Not Detected (Not Detecte); Chlamydophila pneumoniae Not Detected (Not Detect); Coronavirus 229E Not Detected (Not Detect); Coronavirus HKU1 Not Detected (Not Detect); Coronavirus NL 63 Not Detected (Not Detect); Coronavirus OC43 Not Detected (Not Detect); Human Metapneumovirus Not Detected (Not Detect); Human Rhinovirus/Enterovirus Not Detected (Not Detect); Influenza A Not Detected (Not Detect); Influenza B Not Detected (Not Detect); Mycoplasma pneumoniae Not Detected (Not Detect); Parainfluenza Virus 1 Not Detected (Not Detect); Parainfluenza Virus 2 Not Detected (Not Detect); Parainfluenza Virus 3 Not Detected (Not Detect); Parainfluenza Virus 4 Not Detected (Not Detect); Respiratory Syncytial Virus Not Detected (Not Detect); SARS- CoV-2 Not Detected (Not Detecte)
[2022-08-08] MEDS: METOCLOPRAMIDE 10 MG/2 ML INJ IV (17:48)
== END 2022-08-08 19:12 | disposition home or self-care (01) ==
PROVIDERS: Emergency Medicine; Emergency Provider Emergency Medicine; PCP Family Medicine
DX: R10.9 Unspecified abdominal pain (principal); R00.0 Tachycardia, unspecified; R11.2 Nausea with vomiting, unspecified; Z20.822 Contact with and (suspected) exposure to COVID-19
CPT/HCPCS: 36415; 74177; 80053; 81003; 81015; 81025; 83690; 85025; 87086; 87633; 96361; 96374; 96375; 96376; 99284; J2270; J2405; J2765; Q9967

== ENCOUNTER 2022-10-09 14:31 | Emergency (ER) | payer OTHER, SELFPAY ==
[2022-10-09 14:39] VITALS: BP 172/110; PULSE 78; RESP 18; TEMP 37.1; O2SAT 100; BMI 37.5
[2022-10-09 16:17] VITALS: BP 170/106; PULSE 96; RESP 24; O2SAT 100
[2022-10-09] MEDS: ACETAMINOPHEN 325 MG TABLET 975 MG PO (16:29)
--- NOTE | 2022-10-09 17:51 | ED_ITS ---
HPI - General Adult General Chief complaint: Hypertension Stated complaint: High B/P, disoriented, headache, sent by PCP Time Seen by Provider: 10/09/22 19:31 Source: patient Mode of arrival: Ambulatory History of Present Illness HPI narrative: Patient 32 Year old female history of ulcerative colitis, hypertension presenting today with elevated blood pressure. She was actually seen and evaluated at 3:00 a.m. at outside facility for abdominal pain. She had abdominal CT blood work discharged home. She started having some chest dis comfort lightheadedness and feeling well she had a blood pressure greater than 200 and came to the ED. At this time her blood pressure is 135/85 she is taken 400 mg of labetalol she is overall feeling better. She reports that her left lower quadrant pain is the same as it always is for her ulcerative colitis. She is supposed to get infusions she is a week late getting her infusion. She was mostly just worried about her blood pressure. Related Data Home Medications Medication Instructions Recorded Confirmed vedolizumab 300 mg intravenous 300 mg IV Q4W 06/02/21 01/31/22 solution (Entyvio) pantoprazole 40 mg granules 40 mg PO BID 07/24/22 07/24/22 delayed-release for susp in packet Previous Rx's Medication Instructions Recorded labetalol 200 mg tablet 200 mg PO BID #180 tabs 07/24/22 hydrocodone 5 mg-acetaminophen 325 1 tab PO Q6H PRN pain #7 tabs 08/08/22 mg tablet metoclopramide HCl 10 mg tablet 10 mg PO Q6H PRN nausea and 08/08/22 (Reglan) vomiting #7 tabs duloxetine 20 mg capsule,delayed 20 mg PO DAILY #40 caps 09/14/22 release (Cymbalta) Allergies Allergy/AdvReac Type Severity Reaction Status Date / Time Latex, Natural Rubber Allergy Mild Verified 07/24/22 16:18 Review of Systems Review of Systems ROS Unobtainable: All systems reviewed & are unremarkable except as noted in HPI and below Patient History Medical History Anxiety (~2017) Carpal tunnel syndrome (~2012) Chronic back pain (~2018) GERD (gastroesophageal reflux disease) (~2010) GI bleeding Hypertension (~2013) Infertility (~2016) Irregular menstrual cycle Painful menstrual periods Ulcerative colitis (~2010) Vertigo (~2012) Surgical History Anesthesia History of section (~09/2020) History of cholecystectomy (~12/2009) History of tonsillectomy (~06/2017) Ovarian cyst (~12/2017) Family History Father History of heart disease Hypertension Mother Mental health problem Grandfather History of heart disease Hyperlipidemia Hypertension Grandmother Hypertension Social History Smoking Status: Never smoker Smoking Status: Never smoker alcohol intake frequency: holidays/special occasions only Substance Use Type: does not use Exam Initial Vital Signs Initial Vital Signs: Vital Signs Temperature 98.7 F 10/09/22 14:39 Pulse Rate 78 10/09/22 14:39 Respiratory Rate 18 10/09/22 14:39 Blood Pressure 172/110 H 10/09/22 14:39 Pulse Oximetry 100 10/09/22 14:39 Oxygen Delivery Method Room Air 10/09/22 14:39 GENERAL: Alert pleasant well-appearing 32-year-old female female HEENT: Head atraumatic,EOMI, pupils reactive, face symmetric, [moist] mucous membranes CARDIOVASCULAR: Regular rate and rhythm without murmurs, rubs or gallops. RESPIRATORY: Breath sounds equal bilaterally, no wheezes rales or rhonchi. ABDOMEN: Soft, nontender. Normoactive bowel sounds all 4 quadrants. No guarding or rebound. EXTREMITIES: Normal range of motion, no clubbing or edema. Neurovascularly intact NEUROLOGICAL: Alert and oriented x4.Normal gait and speech. SKIN: Warm, dry, no laceration, no petechiae, no rashes or lesions. Course Orders Ordered: Discontinued Medications Acetaminophen (Acetaminophen 325 Mg Tablet) 975 mg PO NOW ONE Stop: 10/09/22 16:24 Last Admin: 10/09/22 16:29 Dose: 975 mg Documented By: BERLIN Vital Signs Vital signs: Vital Signs - 8 hr 10/09/22 14:39 10/09/22 16:17 10/09/22 19:30 Temperature 98.7 F Pulse Rate 78 96 H 81 Respiratory Rate 18 24 16 Blood Pressure 172/110 H 170/106 H 135/95 H Pulse Oximetry 100 100 95 Oxygen Delivery Method Room Air Room Air Room Air Medical Decision Making Lab Data 10/09/22 16:25 10/09/22 16:25 Labs: Lab Results 10/09/22 10/09/22 Range/Units 16:25 16:25 WBC 9.4 (4.5-11.0) X10^3/uL RBC 4.40 (4.0-5.2) X10^6/uL Hgb 12.4 (12.0-16.0) g/dL Hct 36.2 (36-46) % MCV 82.4 (80-100) fL MCH 28.2 (26-34) PG MCHC 34.2 (30-36) % RDW 14.4 (11.6-14.8) % Plt Count 389 (150-400) X10^3/uL Neut % (Auto) 69.7 (50-75) % Lymph % (Auto) 20.8 L (25-40) % [place] % (Auto) 7.3 (3-14) % Eos % (Auto) 1.8 L (2-4) % Baso % (Auto) 0.4 (0-2) % Neut # (Auto) 6500 (1301-4288) /uL Lymph # (Auto) 2000 (1437-1035) /uL [place] # (Auto) 700 (0-900) /uL Eos # (Auto) 200 (0-450) /uL Baso # (Auto) 0 (0-100) /uL Sodium 136 L (137-145) mmol/L Potassium 3.7 (3.4-5.1) mmol/L Chloride 99 (98-107) mmol/L Carbon Dioxide 28 (22-32) mmol/L BUN 7 (7-17) mg/dL Creatinine 0.64 (0.52-1.04) mg/dL Estimated GFR > 60 (>60) mL/min BUN/Creatinine Ratio 10.9 (6-22) Glucose 96 (70-100) mg/dL Calcium 9.1 (8.4-10.2) mg/dL Total Bilirubin 0.4 (0.2-1.3) mg/dL AST 40 H (14-36) IU/L ALT 18 (<35) IU/L Alkaline Phosphatase 125 (38-126) U/L Total Creatine Kinase 136 H (30-135) U/L Troponin I < 0.012 (0.01-0.034) ng/mL Total Protein 8.0 (6.3-8.2) g/dL Albumin 4.5 (3.5-5.0) g/dL Globulin 3.5 (1.7-4.1) g/dL Albumin/Globulin Ratio 1.3 (1.0-2.8) Lipase 39 (23-300) U/L Point of Care Testing Test Results Negative Urine Dip Bedside Urine Glucose Negative Bedside Urine Bilirubin - Negative Bedside Urine Ketone - Negative Urine Specific [place] 1.010 Bedside Urine Occult Blood - Negative Bedside Urine pH 6.0 Bedside Urine Protein - Negative Bedside Urine Urobilinogen - Negative Bedside Urine Nitrite - Negative Bedside Urine Leukocytes - Negative Esterase Point of care testing: Point of Care Testing Test Results Negative Urine Dip Bedside Urine Glucose Negative Bedside Urine Bilirubin - Negative Bedside Urine Ketone - Negative Urine Specific [place] 1.010 Bedside Urine Occult Blood - Negative Bedside Urine pH 6.0 Bedside Urine Protein - Negative Bedside Urine Urobilinogen - Negative Bedside Urine Nitrite - Negative Bedside Urine Leukocytes - Negative Esterase Imaging Data Chest x-ray: Radiologist's Impression: PROCEDURE:? XR CHEST 1V ? INDICATIONS:? chest pain ? TECHNIQUE:? One view of the chest was acquired.? ? COMPARISON:? [facility], , XR CHEST 2V, 02/07/2022, 19:36. ? FINDINGS:? ? Surgical changes and devices:? None.? ? Lungs and pleura:? Lungs are clear.? No pleural effusions or pneumothorax.? ? Mediastinum:? Mediastinal contours appear normal.? Heart size is normal.? ? Bones and chest wall:? No suspicious bony lesions.? Overlying soft tissues appear unremarkable.? ? IMPRESSION:? No acute cardiopulmonary process. ? ? ? Dictated by: Jasmeet Prado M.D. on 10/09/2022 at 18:51 ? ECG Data Interpretation: sinus rhythm rate 75 HI interval 196 QRS [address] changes Q-wave noted in lead 3 only slightly low voltage MDM Narrative Medical decision making narrative: The patient 32-year-old female history of ulcerative colitis hypertension presenting today with elevated blood pressure. I have seen evaluated records from [facility] blood work there is overall reassuring as it is here. She had an abdominal CT that time which did not show any significant abnormality. She today initially had who elevated blood pressure 172/110 no evidence of end-organ damage. Overall feeling better now blood pressure has improved to 130 5/95 without any sort of intervention. She did take her labetalol earlier. At this time recommend monitoring blood pressure at home continuing to treat her ulcerative colitis with her infusions to return as nee ded. Chest x-ray reviewed today without any acute abnormality Discharge Plan Departure Patient Disposition: Home Clinical Impression: Hypertension Instructions: DI for High Blood Pressure Activity Restrictions/Additional Instructions: *You have been diagnosed with high blood pressure *What to do: at this time please continue to monitor your blood pressure. Recommend taking 1-2 times daily recording it and talking with her PCP you may need a change in your medication. *Continue to take medications as directed *Follow up with your primary care provider in 2-3 days or call [phone] *Return to ER if you should have Persistently elevated blood pressure greater than 200/100, headache chest pain shortness of breath [or] any new, worsening or concerning symptoms Prescriptions: No Action duloxetine [Cymbalta] 20 mg capsule,delayed release(DR/EC) 20 mg PO DAILY Qty: 40 0RF Rx Instructions: I would recommend decreasing to 2, 20 mg capsules daily for 1 week followed by 2, 20mg capsules every other day and 1, 20mg capsule on alternate days for 1 week then 1, 20mg capsule daily for 1 week, then 20 mg every other day for 1 week then stop. Entyvio 300 mg recon soln 300 mg IV Q4W Rx Instructions: administer week 6 of treatment pantoprazole [address] for susp in packet 40 mg PO BID labetalol 200 mg tablet 200 mg PO BID Qty: 180 1RF metoclopramide HCl [Reglan] 10 mg tablet 10 mg PO Q6H PRN (Reason: nausea and vomiting) Qty: 7 0RF hydrocodone-acetaminophen 5-325 mg tablet 1 tab PO Q6H PRN (Reason: pain) Qty: 7 0RF Referrals: Clemente Mosqueda MD [Primary Care Provider] - Stand Alone Forms: Patient Portal/API
--- NOTE | 2022-10-09 18:27 | DI.RAD.S_ITS ---
PROCEDURE: XR CHEST 1V INDICATIONS: chest pain TECHNIQUE: One view of the chest was acquired. COMPARISON: [facility], CR, XR CHEST 2V, 02/07/2022, 19:36. FINDINGS: Surgical changes and devices: None. Lungs and pleura: Lungs are clear. No pleural effusions or pneumothorax. Mediastinum: Mediastinal contours appear normal. Heart size is normal. Bones and chest wall: No suspicious bony lesions. Overlying soft tissues appear unremarkable. IMPRESSION: No acute cardiopulmonary process. Dictated by: Jasmeet Prado M.D. on 10/09/2022 at 18:51 Approved by: Jasmeet Prado M.D. on 10/09/2022 at 18:51
[2022-10-09 18:54] LABS: Alanine Aminotransferase 18 IU/L (<35); Albumin 4.5 g/dL (3.5-5.0); Albumin Globulin Ratio 1.3 (1.0-2.8); Alkaline Phosphatase 125 U/L (38-126); Aspartate Aminotransferase 40 IU/L (14-36); BUN Creatinine Ratio 10.9 (6-22); Bilirubin Total 0.4 mg/dL (0.2-1.3); Blood Urea Nitrogen 7 mg/dL (7-17); Calcium 9.1 mg/dL (8.4-10.2); Carbon Dioxide 28 mmol/L (22-32); Chloride 99 mmol/L (98-107); Creatine Kinase 136 U/L (30-135); Estimated Glomerular Filt Rate > 60 mL/min (>60); Globulin 3.5 g/dL (1.7-4.1); Glucose 96 mg/dL (70-100); HEMOLYSIS < 15 (0-50); Lipase 39 U/L (23-300); Potassium 3.7 mmol/L (3.4-5.1); Sodium 136 mmol/L (137-145)
[2022-10-09 19:02] LABS: Add Manual Diff / Slide Review NO; Basophils Absolute Auto 0 /uL (0-100); Basophils Percent Auto 0.4 % (0-2); Eosinophils Absolute Auto 200 /uL (0-450); Eosinophils Percent Auto 1.8 % (2-4); Hematocrit 36.2 % (36-46); Hemoglobin 12.4 g/dL (12.0-16.0); Lymphocytes Absolute Auto 2000 /uL (1100-4500); Lymphocytes Percent Auto 20.8 % (25-40); Mean Corpuscular HGB Conc 34.2 % (30-36); Mean Corpuscular Hemoglobin 28.2 PG (26-34); Mean Corpuscular Volume 82.4 fL (80-100); Monocytes Absolute Auto 700 /uL (0-900); Monocytes Percent Auto 7.3 % (3-14); Neutrophils Absolute Auto 6500 /uL (1500-7000); Neutrophils Percent Auto 69.7 % (50-75); Platelet Count 389 X10^3/uL (150-400); Red Cell Distribution Width 14.4 % (11.6-14.8); White Blood Cell Count 9.4 X10^3/uL (4.5-11.0)
[2022-10-09 19:06] LABS: Troponin I < 0.012 ng/mL (0.01-0.034)
[2022-10-09 19:30] VITALS: BP 135/95; PULSE 81; RESP 16; O2SAT 95
== END 2022-10-09 19:50 | disposition home or self-care (01) ==
PROVIDERS: Emergency Provider Emergency Medicine; PCP Family Medicine
DX: R07.9 Chest pain, unspecified (principal); I10 Essential (primary) hypertension
CPT/HCPCS: 36415; 71045; 80053; 81003; 81025; 82550; 83690; 84484; 85025; 93005; 93010; 99284

== ENCOUNTER → 2022-10-12 13:59 | Outpatient (CLI) | payer OTHER, SELFPAY ==
[2022-10-12 14:15] LABS: Add Manual Diff / Slide Review NO; Basophils Absolute Auto 100 /uL (0-100); Basophils Percent Auto 0.8 % (0-2); Eosinophils Absolute Auto 200 /uL (0-450); Eosinophils Percent Auto 2.4 % (2-4); Hematocrit 35.4 % (36-46); Lymphocytes Absolute Auto 2400 /uL (1100-4500); Lymphocytes Percent Auto 29.5 % (25-40); Mean Corpuscular HGB Conc 33.9 % (30-36); Mean Corpuscular Hemoglobin 28.1 PG (26-34); Mean Corpuscular Volume 82.9 fL (80-100); Monocytes Absolute Auto 800 /uL (0-900); Monocytes Percent Auto 9.5 % (3-14); Neutrophils Absolute Auto 4800 /uL (1500-7000); Neutrophils Percent Auto 57.8 % (50-75); Platelet Count 405 X10^3/uL (150-400); Red Blood Cell Count 4.27 X10^6/uL (4.0-5.2); Red Cell Distribution Width 14.3 % (11.6-14.8); White Blood Cell Count 8.3 X10^3/uL (4.5-11.0)
--- NOTE | 2022-10-12 14:32 | DI.US.S_ITS ---
PROCEDURE: US PELVIC COMPLETE INDICATIONS: LLQ PAIN; POSSIBLE TORSION TECHNIQUE: Real-time scanning was performed of the pelvic organs, with image documentation. Additional endovaginal scanning was necessary due to incomplete visualization of the adnexal and endometrial structures by transabdominal scanning. Spectral and color Doppler evaluation of the ovaries was performed. COMPARISON: None. FINDINGS: Uterus: Uterus is anteverted and normal in size at 7.4 x 3.5 x 4.5 cm. The myometrium is homogeneous. The endometrium measures 5 mm combined thickness. Ovaries: The right ovary measures 1.9 x 3.3 x 2.7 cm, with a calculated ovarian volume of 9 cc. The left ovary measures 2.9 x 2.6 x 2.4 cm, with a calculated ovarian volume of 10 cc. The ovaries have a normal sonographic appearance. Greater than 12 follicles can be seen in each ovary. No adnexal masses are seen. Patent vasculature of the ovaries. Other: No pathologic free abdominal or pelvic fluid. IMPRESSION: Greater than 12 follicles per ovary, which can be seen in the clinical setting of PCOS. No sonographic evidence of ovarian torsion. We strive to produce accurate, complete, and clear reports of imaging services. To assist us in improving patient care, this report was composed using standard report templates and voice recognition software. Therefore, it may contain abnormal punctuation, insertions and/or omissions. Occasional wrong-word or sound-alike substitutions may occur. Though we review the report and make efforts to correct it, we do recommend that the report be read carefully in proper context to recognize any text inaccuracies. Dictated by: Jasmeet Prado M.D. on 10/12/2022 at 15:31 Approved by: Jasmeet Prado M.D. on 10/12/2022 at 15:34
[2022-10-12 15:03] LABS: Alanine Aminotransferase 16 IU/L (<35); Albumin 4.5 g/dL (3.5-5.0); Albumin Globulin Ratio 1.4 (1.0-2.8); Alkaline Phosphatase 114 U/L (38-126); Aspartate Aminotransferase 21 IU/L (14-36); BUN Creatinine Ratio 10.3 (6-22); Bilirubin Total 0.3 mg/dL (0.2-1.3); Blood Urea Nitrogen 6 mg/dL (7-17); Calcium 9.6 mg/dL (8.4-10.2); Carbon Dioxide 31 mmol/L (22-32); Chloride 98 mmol/L (98-107); Estimated Glomerular Filt Rate > 60 mL/min (>60); Globulin 3.2 g/dL (1.7-4.1); Glucose 93 mg/dL (70-100); HEMOLYSIS < 15 (0-50); Potassium 3.8 mmol/L (3.4-5.1); Sodium 137 mmol/L (137-145); Total Protein 7.7 g/dL (6.3-8.2)
== END ==
PROVIDERS: PCP Family Medicine; Referring Provider Family Medicine; Visit Provider Family Medicine
DX: N83.209 Unspecified ovarian cyst, unspecified side (principal); R10.32 Left lower quadrant pain; I10 Essential (primary) hypertension; K51.90 Ulcerative colitis, unspecified, without complications
CPT/HCPCS: 36415; 76830; 76856; 80053; 85025; 93975

== ENCOUNTER 2023-03-31 09:10 | Emergency (ER) | payer OTHER, SELFPAY ==
[2023-03-31] VITALS (9 sets, daily range): BP systolic 129–160; BP diastolic 77–102; PULSE 98–134; RESP 18–20; TEMP 36.6; O2SAT 96–98; BMI 38.4
[2023-03-31 09:47] LABS: Add Manual Diff / Slide Review NO; Basophils Absolute Auto 0 /uL (0-100); Basophils Percent Auto 0.2 % (0-2); Eosinophils Absolute Auto 200 /uL (0-450); Eosinophils Percent Auto 0.8 % (2-4); Hematocrit 40.3 % (36-46); Hemoglobin 13.8 g/dL (12.0-16.0); Lymphocytes Absolute Auto 900 /uL (1100-4500); Lymphocytes Percent Auto 4.4 % (25-40); Mean Corpuscular HGB Conc 34.2 % (30-36); Mean Corpuscular Hemoglobin 28.6 PG (26-34); Mean Corpuscular Volume 83.7 fL (80-100); Monocytes Absolute Auto 1000 /uL (0-900); Monocytes Percent Auto 4.8 % (3-14); Neutrophils Absolute Auto 18700 /uL (1500-7000); Neutrophils Percent Auto 89.8 % (50-75); Platelet Count 487 X10^3/uL (150-400); Red Blood Cell Count 4.82 X10^6/uL (4.0-5.2); Red Cell Distribution Width 14.2 % (11.6-14.8); White Blood Cell Count 20.8 X10^3/uL (4.5-11.0)
[2023-03-31] MEDS: SODIUM CHLORIDE 0.9% 1,000 ML 1000 ML IV ×2 (09:53→10:32)
[2023-03-31] MEDS: ONDANSETRON 4 MG/2 ML INJ IV (09:53)
[2023-03-31 09:56] LABS: Alanine Aminotransferase 20 IU/L (<35); Albumin Globulin Ratio 1.4 (1.0-2.8); Alkaline Phosphatase 110 U/L (38-126); Aspartate Aminotransferase 28 IU/L (14-36); BUN Creatinine Ratio 18.5 (6-22); Bilirubin Total 0.7 mg/dL (0.2-1.3); Blood Urea Nitrogen 12 mg/dL (7-17); Calcium 10.1 mg/dL (8.4-10.2); Carbon Dioxide 25 mmol/L (22-32); Chloride 101 mmol/L (98-107); Estimated Glomerular Filt Rate > 60 mL/min (>60); Globulin 3.7 g/dL (1.7-4.1); Glucose 136 mg/dL (70-100); HEMOLYSIS < 15 (0-50); Lipase 44 U/L (23-300); Potassium 4.5 mmol/L (3.4-5.1); Sodium 138 mmol/L (137-145); Total Protein 8.7 g/dL (6.3-8.2)
--- NOTE | 2023-03-31 09:56 | ED.GENADULT ---
HPI - General Adult General Chief complaint: Abdominal Pain Stated complaint: abd pain, vomiting, dizziness Time Seen by Provider: 03/31/23 09:39 Source: patient Mode of arrival: Ambulatory Limitations: no limitations History of Present Illness HPI narrative: Patient is a 32-year-old female. Has a history of ulcerative colitis. Stated that her son had a GI illness that lasted only several hours approximately 1 week ago. On of last week she started to have upper respiratory tract infection like symptoms. This morning she woke up at about 0400 hours and has had multiple episodes of diarrhea, left-sided abdominal pain, nausea and vomiting. Subjective fevers at home. No blood in her stool. No urinary symptoms. Has been unable to keep anything down since the onset of her symptoms. Related Data Home Medications Medication Instructions Recorded Confirmed vedolizumab 300 mg intravenous 300 mg IV Q4W 06/02/21 10/23/22 solution (Entyvio) pantoprazole 40 mg granules 40 mg PO BID 07/24/22 10/12/22 delayed-release for susp in packet fluoxetine 20 mg capsule 20 mg PO DAILY 03/12/23 Previous Rx's Medication Instructions Recorded labetalol 200 mg tablet 200 mg PO BID #180 tabs 07/24/22 losartan 100 mg tablet 100 mg PO DAILY #90 tabs 10/12/22 prednisone 20 mg tablet 40 mg (2 x 20 mg) PO DAILY #10 tabs 10/12/22 drospirenone 3 mg-ethinyl 1 tab PO DAILY #84 tabs 11/27/22 estradiol 0.02 mg tablet (ABEBE (28)) ondansetron 4 mg disintegrating 4 mg PO Q6H PRN nausea and 03/31/23 tablet vomiting #14 tabs Allergies Allergy/AdvReac Type Severity Reaction Status Date / Time Latex, Natural Rubber Allergy Mild Verified 10/12/22 13:28 Review of Systems Constitutional Constitutional: Reports system reviewed and no additional complaints, except as documented Respiratory Respiratory: Reports system reviewed and no additional complaints, except as documented Gastrointestinal Gastrointestinal: Reports system reviewed and no additional complaints, except as documented Genitourinary Genitourinary: Reports system reviewed and no additional complaints, except as documented Integumentary/Breasts Skin/Breast: Reports system reviewed and no additional complaints, except as documented Hematologic/Lymphatic On Anticoagulants: No Patient History Medical History Anxiety (~2017) Chronic back pain (~2018) Carpal tunnel syndrome (~2012) Vertigo (~2012) Painful menstrual periods Irregular menstrual cycle Infertility (~2016) GI bleeding GERD (gastroesophageal reflux disease) (~2010) Hypertension (~2013) Ulcerative colitis (~2010) Surgical History Anesthesia History of section (~09/2020) History of cholecystectomy (~12/2009) History of tonsillectomy (~06/2017) Ovarian cyst (~12/2017) Family History Father History of heart disease Hypertension Mother Mental health problem Grandfather History of heart disease Hyperlipidemia Hypertension Grandmother Hypertension Social History Smoking Status: Never smoker Smoking Status: Never smoker alcohol intake frequency: holidays/special occasions only Substance Use Type: does not use Exam Initial Vital Signs Initial Vital Signs: Vital Signs Temperature 97.8 F 03/31/23 09:18 Pulse Rate 134 H 03/31/23 09:18 Respiratory Rate 20 03/31/23 09:18 Blood Pressure 137/102 H 03/31/23 09:18 Pulse Oximetry 98 03/31/23 09:18 Oxygen Delivery Method Room Air 03/31/23 09:18 Const General: cooperative, comfortable and No ill appearing HENMT Head: normal to inspection and normocephalic Resp Effort & Inspection: normal respiratory effort Auscultation: clear to auscultation bilaterally Cardio Rate: tachycardic Rhythm: regular rhythm GI Inspection: normal to inspection and non-distended Palpation: soft, No firm, No guarding, No rigid and tender (Mild tenderness left side of abdomen) Skin General: no rashes or lesions noted Neuro General: patient alert and moves all extremities Extrem General: normal to inspection Course Orders Ordered: ED Orders 03/31/23 09:30 Urine Microscopic Stat 03/31/23 09:31 EKG-12 Lead Stat 03/31/23 09:38 Complete Blood Count AUTO DIFF Stat Comprehensive Metabolic Panel Stat Lipase Stat 03/31/23 10:10 Covid-19 + FLU A/B + RSV - PCR Stat Ondansetron HCl (Ondansetron 4 Mg Odt) 4 mg PO NOW PRN PRN Reason: Nausea And Vomiting Ondansetron HCl (Ondansetron 4 Mg/2 Ml Inj) 4 mg IV NOW PRN PRN Reason: Nausea And Vomiting Last Admin: 03/31/23 09:53 Dose: 4 mg Documented By: MARIPOSA Discontinued Medications Acetaminophen (Acetaminophen 325 Mg Tablet) 975 mg PO NOW ONE Stop: 03/31/23 10:16 Last Admin: 03/31/23 11:03 Dose: 975 mg Documented By: GEENA Sodium Chloride (Normal Saline 0.9%) 1,000 mls @ 1,000 mls/hr IV BOLUS ONE Stop: 03/31/23 10:30 Last Infusion: 03/31/23 10:32 Dose: Infused Documented By: Admin: 03/31/23 09:53 Dose: 1,000 mls/hr Documented By: MARIPOSA Sodium Chloride (Normal Saline 0.9%) 1,000 mls @ 1,000 mls/hr IV BOLUS ONE Stop: 03/31/23 11:18 Last Infusion: 03/31/23 11:24 Dose: Infused Documented By: Admin: 03/31/23 10:32 Dose: 1,000 mls/hr Documented By: GEENA Ketorolac Tromethamine (Ketorolac 30 Mg/Ml Vial) 30 mg IV NOW ONE Stop: 03/31/23 11:04 Last Admin: 03/31/23 11:33 Dose: 30 mg Documented By: GEENA Metoclopramide HCl (Metoclopramide 10 Mg/2 Ml Inj) 10 mg IV NOW ONE Stop: 03/31/23 10:25 Last Admin: 03/31/23 10:33 Dose: 10 mg Documented By: GEENA Vital Signs Vital signs: Vital Signs - 8 hr 03/31/23 09:18 03/31/23 09:35 03/31/23 09:35 Temperature 97.8 F Pulse Rate 134 H 118 H Respiratory Rate 20 Blood Pressure 137/102 H 160/98 H Pulse Oximetry 98 96 Oxygen Delivery Method Room Air 03/31/23 10:00 03/31/23 10:00 03/31/23 10:30 Temperature Pulse Rate 100 H 100 H Respiratory Rate Blood Pressure 142/87 H Pulse Oximetry 96 98 Oxygen Delivery Method Room Air Room Air 03/31/23 10:30 03/31/23 11:00 03/31/23 11:00 Temperature Pulse Rate 98 H Respiratory Rate Blood Pressure 137/88 137/83 Pulse Oximetry 97 Oxygen Delivery Method Room Air Medical Decision Making Lab Data Lab results reviewed: Yes I reviewed the patient's lab results. 03/31/23 09:38 03/31/23 09:38 Labs: Lab Results 03/31/23 03/31/23 03/31/23 Range/Units 09:30 09:38 10:10 WBC 20.8 H (4.5-11.0) X10^3/uL RBC 4.82 (4.0-5.2) X10^6/uL Hgb 13.8 (12.0-16.0) g/dL Hct 40.3 (36-46) % MCV 83.7 (80-100) fL MCH 28.6 (26-34) PG MCHC 34.2 (30-36) % RDW 14.2 (11.6-14.8) % Plt Count 487 H (150-400) X10^3/uL Neut % (Auto) 89.8 H (50-75) % Lymph % (Auto) 4.4 L (25-40) % [place] % (Auto) 4.8 (3-14) % Eos % (Auto) 0.8 L (2-4) % Baso % (Auto) 0.2 (0-2) % Neut # (Auto) 30316 H (8847-8167) /uL Lymph # (Auto) 900 L (0189-2605) /uL [place] # (Auto) 1000 H (0-900) /uL Eos # (Auto) 200 (0-450) /uL Baso # (Auto) 0 (0-100) /uL Sodium 138 (137-145) mmol/L Potassium 4.5 (3.4-5.1) mmol/L Chloride 101 (98-107) mmol/L Carbon Dioxide 25 (22-32) mmol/L BUN 12 (7-17) mg/dL Creatinine 0.65 (0.52-1.04) mg/dL Estimated GFR > 60 (>60) mL/min BUN/Creatinine Ratio 18.5 (6-22) Glucose 136 H (70-100) mg/dL Calcium 10.1 (8.4-10.2) mg/dL Total Bilirubin 0.7 (0.2-1.3) mg/dL AST 28 (14-36) IU/L ALT 20 (<35) IU/L Alkaline Phosphatase 110 (38-126) U/L Total Protein 8.7 H (6.3-8.2) g/dL Albumin 5.0 (3.5-5.0) g/dL Globulin 3.7 (1.7-4.1) g/dL Albumin/Globulin Ratio 1.4 (1.0-2.8) Lipase 44 (23-300) U/L Urine RBC None seen (0-5/HPF) Urine WBC 1-5/hpf (0-5/HPF) Ur Squamous Epith Cells 5-10 /hpf H (0-5/HPF) Urine Bacteria Many (>30) H (None) Ur Culture Indicated? Cult not indicated Vol Urine Centrifuged 10ml (spun) SARS-CoV-2 (PCR) Negative (Negative) Influenza A (RT-PCR) Flu a negative (NEGATIVE) Influenza B (RT-PCR) Flu b negative (NEGATIVE) RSV (PCR) Negative (Negative) Point of Care Testing Test Results Negative Urine Dip Bedside Urine Glucose Negative Bedside Urine Bilirubin - Negative Bedside Urine Ketone - Negative Urine Specific [place] 1.010 Bedside Urine Occult Blood - Negative Bedside Urine pH 8.5 Bedside Urine Protein ++ 100 Bedside Urine Urobilinogen - Negative Bedside Urine Nitrite - Negative Bedside Urine Leukocytes - Negative Esterase Point of care testing: Point of Care Testing Test Results Negative Urine Dip Bedside Urine Glucose Negative Bedside Urine Bilirubin - Negative Bedside Urine Ketone - Negative Urine Specific [place] 1.010 Bedside Urine Occult Blood - Negative Bedside Urine pH 8.5 Bedside Urine Protein ++ 100 Bedside Urine Urobilinogen - Negative Bedside Urine Nitrite - Negative Bedside Urine Leukocytes - Negative Esterase ECG Data Interpretation: Sinus rhythm Ventricular rate 95 Normal axis Normal QRS Normal QTC Nonspecific ST T wave changes MDM Narrative Medical decision making narrative: Patient does have leukocytosis however I suspect that this is because of all of the diarrhea and nausea and vomiting and most likely what ever infection is causing her presenting symptoms today. She feels better after fluids and Toradol. Has a benign exam. Will hold on radiologic studies for now. Is able to tolerate oral intake prior to discharge. Will send home with medications for nausea. She was given return precautions and follow-up instructions. She expressed understanding and agreement. Discharge Plan Departure Patient Disposition: Home Clinical Impression: Diarrhea, Abdominal pain, Nausea and vomiting Instructions: Diarrhea, DI for Abdominal Pain-Adult, Nausea and Vomiting-Adult Activity Restrictions/Additional Instructions: Recommend a bland diet for the next several days. Be sure that your increasing your fluid intake. Use the nausea medication as needed. Return to the emergency department for new or worsening symptoms. Prescriptions: New ondansetron 4 mg tablet,disintegrating 4 mg PO Q6H PRN (Reason: nausea and vomiting) Qty: 14 0RF No Action fluoxetine 20 mg capsule 20 mg PO DAILY losartan 100 mg tablet 100 mg PO DAILY Qty: 90 1RF prednisone 20 mg tablet 40 mg PO DAILY Qty: 10 0RF drospirenone-ethinyl estradiol [ABEBE (28)] 3-0.02 mg tablet 1 tab PO DAILY Qty: 84 5RF Rx Instructions: Take first 3 weeks of pills, discard the fourth week of pills, and start a new pack of pills. Entyvio 300 mg recon soln 300 mg IV Q4W Rx Instructions: administer week 6 of treatment pantoprazole [address] for susp in packet 40 mg PO BID labetalol 200 mg tablet 200 mg PO BID Qty: 180 1RF Referrals: Clemente Mosqueda MD [Primary Care Provider] - Stand Alone Forms: Patient Portal/API
[2023-03-31 10:10] LABS: Squamous Epithelial Cell Urine 5-10 /HPF (0-5/HPF); Urine Volume 10mL (spun)
[2023-03-31 10:11] LABS: Bacteria Urine Many (>30); Culture Indicated Urine Cult Not Indicated; RBC Urine None Seen (0-5/HPF); WBC Urine 1-5/HPF (0-5/HPF)
--- NOTE | 2023-03-31 10:21 | PC.NURSE ---
Pt reports this pain and nausea is unlike her prior history of collitis. She is taking entivio for her collitis with the last flair up being a couple years ago. She reports feeling chilled and clammy when her nausea worsens, but denies feeling feverish.
[2023-03-31] MEDS: METOCLOPRAMIDE 10 MG/2 ML INJ IV (10:33)
[2023-03-31 10:54] LABS: Influenza A - CEPHEID Flu A NEGATIVE (NEGATIVE); Influenza B - CEPHEID Flu B NEGATIVE (NEGATIVE); Respiratory Syncytial Virus Negative (Negative)
[2023-03-31 10:56] LABS: COVID-19 CEPHEID 4-PLEX PCR Negative (Negative)
[2023-03-31] MEDS: ACETAMINOPHEN 325 MG TABLET 975 MG PO (11:03)
[2023-03-31] MEDS: KETOROLAC 30 MG/ML VIAL IV (11:33)
== END 2023-03-31 12:46 | disposition home or self-care (01) ==
PROVIDERS: Emergency Provider Emergency Medicine; PCP Family Medicine
DX: R10.9 Unspecified abdominal pain (principal); R19.7 Diarrhea, unspecified; R11.2 Nausea with vomiting, unspecified; Z20.822 Contact with and (suspected) exposure to COVID-19
CPT/HCPCS: 0241U; 36415; 80053; 81003; 81015; 81025; 83690; 85025; 93005; 96361; 96374; 96375; 99284; J1885; J2405; J2765

== ENCOUNTER 2023-08-30 17:28 | Emergency (ER) | payer OTHER, SELFPAY ==
[2023-08-30] VITALS (14 sets, daily range): BP systolic 124–172; BP diastolic 78–126; PULSE 97–134; RESP 7–23; TEMP 36.6; O2SAT 95–98; BMI 38.4
[2023-08-30] MEDS: ONDANSETRON 4 MG/2 ML INJ IV (18:16)
[2023-08-30 18:27] LABS: Add Manual Diff / Slide Review NO; Basophils Absolute Auto 0 /uL (0-100); Basophils Percent Auto 0.3 % (0-2); Eosinophils Absolute Auto 100 /uL (0-450); Eosinophils Percent Auto 0.7 % (2-4); Hemoglobin 13.7 g/dL (12.0-16.0); Lymphocytes Absolute Auto 600 /uL (1100-4500); Lymphocytes Percent Auto 3.8 % (25-40); Mean Corpuscular HGB Conc 33.3 % (30-36); Mean Corpuscular Hemoglobin 27.8 PG (26-34); Mean Corpuscular Volume 83.4 fL (80-100); Monocytes Absolute Auto 600 /uL (0-900); Monocytes Percent Auto 3.5 % (3-14); Neutrophils Absolute Auto 15700 /uL (1500-7000); Neutrophils Percent Auto 91.7 % (50-75); Platelet Count 465 X10^3/uL (150-400); Red Blood Cell Count 4.92 X10^6/uL (4.0-5.2); Red Cell Distribution Width 14.3 % (11.6-14.8); White Blood Cell Count 17.1 X10^3/uL (4.5-11.0)
[2023-08-30 18:28] LABS: Alanine Aminotransferase 15 IU/L (<35); Albumin Globulin Ratio 1.3 (1.0-2.8); Alkaline Phosphatase 120 U/L (38-126); Aspartate Aminotransferase 24 IU/L (14-36); BUN Creatinine Ratio 17.1 (6-22); Bilirubin Total 0.9 mg/dL (0.2-1.3); Blood Urea Nitrogen 13 mg/dL (7-17); Calcium 9.7 mg/dL (8.4-10.2); Carbon Dioxide 25 mmol/L (22-32); Chloride 102 mmol/L (98-107); Estimated Glomerular Filt Rate > 60 mL/min (>60); Globulin 3.9 g/dL (1.7-4.1); Glucose 129 mg/dL (70-100); HEMOLYSIS < 15 (0-50); Lipase 49 U/L (23-300); Potassium 4.2 mmol/L (3.4-5.1); Sodium 138 mmol/L (137-145); Total Protein 8.9 g/dL (6.3-8.2)
[2023-08-30] MEDS: SODIUM CHLORIDE 0.9% 1,000 ML 1000 ML IV ×2 (19:06→19:55)
--- NOTE | 2023-08-30 19:07 | ED.ABDPAIN ---
HPI - Abdominal Pain General Chief Complaint: Abdominal Pain Stated Complaint: Abd pain/V/D/fingers tingling Time Seen by Provider: 08/30/23 19:06 Source: patient Mode of arrival: Family Vehicle History of Present Illness HPI narrative: 33-year-old female with history of ulcerative colitis diagnosis 2010, has been Entyvio (vedulizumab) the last 9 years, followed by GI wellness consultant Anuel Alcantar, no colonic or other gastrointestinal surgical interventions thus far, now with nausea vomiting and diarrhea through the day today, slight blood streak on 1 of the stools, no known hemorrhoids, no trauma injury new activities. No recent exposure to antibiotics. No travel or camping. No exposure to persons with similar symptoms. No dizziness, syncope or presyncope symptoms. No black stools. No painful urination. She also has had ovarian cysts in the past, left-sided abdominal pain, concerned that she might have ovarian cyst. Denies vaginal bleeding. Does not believe herself to be . Related Data Home Medications Medication Instructions Recorded Confirmed vedolizumab 300 mg intravenous 300 mg IV Q4W 06/02/21 10/23/22 solution (Entyvio) pantoprazole 40 mg granules 40 mg PO BID 07/24/22 10/12/22 delayed-release for susp in packet fluoxetine 20 mg capsule 20 mg PO DAILY 03/12/23 Previous Rx's Medication Instructions Recorded prednisone 20 mg tablet 40 mg (2 x 20 mg) PO DAILY #10 tabs 10/12/22 drospirenone 3 mg-ethinyl 1 tab PO DAILY #84 tabs 11/27/22 estradiol 0.02 mg tablet (ABEBE (28)) ondansetron 4 mg disintegrating 4 mg PO Q6H PRN nausea and 03/31/23 tablet vomiting #14 tabs losartan 100 mg tablet 100 mg PO DAILY #90 tabs 04/11/23 labetalol 200 mg tablet 200 mg PO BID #180 tabs 04/25/23 Allergies Allergy/AdvReac Type Severity Reaction Status Date / Time Latex, Natural Rubber Allergy Mild Verified 10/12/22 13:28 Review of Systems Review of Systems Narrative: Per HPI Patient History Medical History Anxiety (~2018) Chronic back pain (~2019) Carpal tunnel syndrome (~2012) Vertigo (~2012) Painful menstrual periods Irregular menstrual cycle Infertility (~2016) GI bleeding GERD (gastroesophageal reflux disease) (~2010) Hypertension (~2013) Ulcerative colitis (~2010) Surgical History Anesthesia History of section (~09/2020) History of cholecystectomy (~12/2009) History of tonsillectomy (~06/2017) Ovarian cyst (~12/2017) Family History Father History of heart disease Hypertension Mother Mental health problem Grandfather History of heart disease Hyperlipidemia Hypertension Grandmother Hypertension Social History Smoking Status: Never smoker Smoking Status: Never smoker alcohol intake frequency: holidays/special occasions only Substance Use Type: does not use Exam Narrative Exam Narrative: GENERAL: Well-developed patient, in mild distress. HEAD: Atraumatic. Normocephalic. EYES: Pupils equal round and reactive. Extraocular motions intact. No scleral icterus. No injection or drainage. ENT: Nose without bleeding, purulent drainage. Throat without erythema, tonsillar hypertrophy or exudate. Airway patent. NECK: Trachea midline. Non tender CARDIOVASCULAR: Regular rate and rhythm without murmurs, gallops, or rubs. RESPIRATORY: Clear to auscultation. Breath sounds equal bilaterally. No wheezes, rales, or rhonchi. GASTROINTESTINAL: Abdomen soft, mild left-sided abdominal tenderness, no guarding, no rebound, nondistended. EXTREMITIES: No edema or joint tenderness. BACK: Nontender without deformity or crepitance. No flank tenderness. NEURO: AOx3. SKIN: No rash or erythema of visible areas Initial Vital Signs Initial Vital Signs: Vital Signs Temperature 97.9 F 08/30/23 17:51 Pulse Rate 134 H 08/30/23 17:51 Respiratory Rate 18 08/30/23 17:51 Blood Pressure 132/92 H 08/30/23 17:51 Pulse Oximetry 97 08/30/23 17:51 Oxygen Delivery Method Room Air 08/30/23 17:51 Course Orders Ordered: ED Orders 08/30/23 22:45 GI Panel (Film Array) Stat 08/30/23 22:49 CT abdomen pelvis w con Stat Discontinued Medications Sodium Chloride (Normal Saline 0.9%) 1,000 mls @ 1,000 mls/hr IV BOLUS ONE Stop: 08/30/23 20:03 Last Infusion: 08/30/23 20:06 Dose: Infused Documented By: Admin: 08/30/23 19:06 Dose: 1,000 mls/hr Documented By: MAGAN Sodium Chloride (Normal Saline 0.9%) 1,000 mls @ 1,000 mls/hr IV BOLUS ONE Stop: 08/30/23 20:38 Last Infusion: 08/30/23 20:55 Dose: Infused Documented By: Admin: 08/30/23 19:55 Dose: 1,000 mls/hr Documented By: HARRY Morphine Sulfate (Morphine 4 Mg/Ml Inj) 4 mg IV NOW ONE Stop: 08/30/23 19:40 Last Admin: 08/30/23 19:58 Dose: 4 mg Documented By: HARRY Ondansetron HCl (Ondansetron 4 Mg/2 Ml Inj) 4 mg IV NOW PRN PRN Reason: Nausea And Vomiting Last Admin: 08/30/23 18:16 Dose: 4 mg Documented By: MAGAN Ondansetron HCl (Ondansetron 4 Mg Odt) 4 mg PO NOW PRN PRN Reason: Nausea And Vomiting Ondansetron HCl (Ondansetron 4 Mg Odt Prepack) 1 bottle MISC DIRECTED ONE Stop: 08/30/23 23:54 Last Admin: 08/31/23 00:14 Dose: 1 bottle Documented By: HARRY Vital Signs Vital signs: Vital Signs - 8 hr 08/30/23 22:30 08/30/23 22:30 08/31/23 00:19 Temperature 97.6 F Pulse Rate 112 H 78 Respiratory Rate 19 16 Blood Pressure 133/97 H 124/78 Pulse Oximetry 98 99 Oxygen Delivery Method Room Air MDM - Abdominal Pain Lab Data Attestation: I reviewed the patient's lab results. 08/30/23 18:05 08/30/23 18:05 Labs: Lab Results 08/30/23 08/30/23 Range/Units 18:05 22:45 WBC 17.1 H (4.5-11.0) X10^3/uL RBC 4.92 (4.0-5.2) X10^6/uL Hgb 13.7 (12.0-16.0) g/dL Hct 41.0 (36-46) % MCV 83.4 (80-100) fL MCH 27.8 (26-34) PG MCHC 33.3 (30-36) % RDW 14.3 (11.6-14.8) % Plt Count 465 H (150-400) X10^3/uL Neut % (Auto) 91.7 H (50-75) % Lymph % (Auto) 3.8 L (25-40) % [place] % (Auto) 3.5 (3-14) % Eos % (Auto) 0.7 L (2-4) % Baso % (Auto) 0.3 (0-2) % Neut # (Auto) 88723 H (5236-1376) /uL Lymph # (Auto) 600 L (2166-8554) /uL [place] # (Auto) 600 (0-900) /uL Eos # (Auto) 100 (0-450) /uL Baso # (Auto) 0 (0-100) /uL Sodium 138 (137-145) mmol/L Potassium 4.2 (3.4-5.1) mmol/L Chloride 102 (98-107) mmol/L Carbon Dioxide 25 (22-32) mmol/L BUN 13 (7-17) mg/dL Creatinine 0.76 (0.52-1.04) mg/dL Estimated GFR > 60 (>60) mL/min BUN/Creatinine Ratio 17.1 (6-22) Glucose 129 H (70-100) mg/dL Calcium 9.7 (8.4-10.2) mg/dL Total Bilirubin 0.9 (0.2-1.3) mg/dL AST 24 (14-36) IU/L ALT 15 (<35) IU/L Alkaline Phosphatase 120 (38-126) U/L Total Protein 8.9 H (6.3-8.2) g/dL Albumin 5.0 (3.5-5.0) g/dL Globulin 3.9 (1.7-4.1) g/dL Albumin/Globulin Ratio 1.3 (1.0-2.8) Lipase 49 (23-300) U/L HCG, Quant < 2.39 mIU/mL Stl C. cayetanensis PCR Not detected (Not Detect) Stool Rotavirus (PCR) Not detected (Not Detect) Stool Adenovirus (PCR) Not detected (Not Detect) Stool Astrovirus (PCR) Not detected (Not Detect) Stool Cryptosporidium PCR Not detected (Not Detect) Stl E.coli Shiga Tox PCR Not detected (Not Detect) St Sh/Enteroin Ecoli PCR Not detected (Not Detect) Stl Enterotoxigenic E PCR Not detected (Not Detect) Stool EPEC (PCR) Not detected (Not Detect) Stl E. histolytica PCR Not detected (Not Detect) Stool Giardia [place] PCR Not detected (Not Detect) Stool Sapovirus (PCR) Not detected (Not Detect) Stl P. shigelloides PCR Not detected (Not Detect) St Y.enterocolitica PCR Not detected (Not Detect) Stool Vibrio (PCR) Not detected (Not Detect) Stl Vibrio cholerae PCR Not detected (Not Detect) Stl Enteroaggr Ecoli PCR Not detected (Not Detect) Stl Norovirus GI/GII PCR Detected (Not Detect) Campylobacter (PCR) Not detected (Not Detect) C. difficile Tox (PCR) Not detected (Not Detect) Salmonella (PCR) Not detected (Not Detect) Point of care testing: Point of Care Testing Test Results Negative Urine Dip Bedside Urine Glucose Negative Bedside Urine Bilirubin + 1 Bedside Urine Ketone - Negative Urine Specific [place] 1.025 Bedside Urine Occult Blood - Negative Bedside Urine pH 5.0 Bedside Urine Protein +/- 15 Bedside Urine Urobilinogen - Negative Bedside Urine Nitrite - Negative Bedside Urine Leukocytes +/- [address] scan - abdomen/pelvis: Radiologist's Impression: [address] [address] [address] Scan Report Signed Patient: Clementine Cronin MR#: [id number] : 1990 Acct:[id number] Age/Sex: 33 / F Date of Service: 08/30/23 Loc: ED Accession Number: [id number] Procedure: CT abdomen pelvis wo con Ordering Provider: Jose J Valle MD PROCEDURE: CT ABDOMEN PELVIS WO CON INDICATIONS: abd pain, N/V/D, creat 2.8 TECHNIQUE: Axial sections were acquired from the lung bases to the pubic symphysis. Coronal and sagittal reformats were performed. For radiation dose reduction, the following was used: automated exposure control, adjustment of mA and/or kV according to patient size. COMPARISON: None. FINDINGS: Image quality: Diagnostic. Lower Chest: No significant findings. URINARY: Right Kidney: No stones or hydronephrosis. Right Ureter: No hydroureter. Left Kidney: No stones or hydronephrosis. Left Ureter: No hydroureter. Bladder: Normal wall thickness. No stones. ABDOMEN: Liver: No contour-deforming solid mass. Gallbladder: No radiopaque gallstones or wall thickening. Biliary ducts: No biliary dilation. Pancreas: No ductal dilation. Spleen: Size is within normal limits. Adrenal Glands: No adrenal nodules. Stomach and Bowel: There is no bowel obstruction. No abnormal bowel wall thickening or mesenteric fat stranding. No abscess collection. Peritoneum: No abnormal intraperitoneal fluid. No free air. Ventral Wall: Small umbilical hernia is seen containing fat only. Abdominal Nodes: No enlarged retroperitoneal or mesenteric lymph nodes. Vessels: Aorta and inferior vena cava are normal in size. PELVIS: Pelvic Organs: Intrauterine device is seen within the endometrium. Pelvic Nodes: Unremarkable. Miscellaneous: No inguinal hernias are seen. Bones: No aggressive appearing bony lesions. No acute vertebral body compression fractures. IMPRESSION: 1. No obstructing stones or hydronephrosis. 2. No bowel obstruction or abnormal bowel wall thickening. No free fluid or free air. 3. Intrauterine device in situ. Dictated by: Eros Farnsworth M.D. on 08/30/2023 at 21:35 Approved by: Eros Farnsworth M.D. on 08/30/2023 at 21:38 MDM Narrative Medical decision making narrative: 33-year-old female with history of ulcerative colitis, on immunosuppression therapy, no steroid, with nausea vomiting diarrhea, afebrile, sirs screen negative, some left-sided tenderness on exam. HCG negative. Creatinine favorable. Stool studies requested but no specimen sent so far. CT abdomen and pelvis requested. CT abdomen and pelvis shows no acute changes. Fatty liver incidentally noted. Also some bilateral sacroiliitis like changes. No ankylosing changes. See radiology report (06 later entry, stool specimen had apparently been received, results not known at time of discharge, labs imported positive for norovirus. Clinically we had suspected viral illness. weigh and charge worker nurse to contact patient with the updated information, confirmation of viral enteritis species noted, symptomatic treatment had been discussed before) Critical Care Time Critical Care Time Critical Care Time: Yes Total Critical Care Time: 31 Attestation: The high probability of a clinically significant, sudden or life threatening deterioration of the [abdominopelvic, gastrointestinal] system(s) required my full and direct attention, intervention and personal management. The aggregate critical care time was [31] minutes. This time is in addition to time spent performing reported procedures but includes the following: [x] Data Review and interpretation [x] Patient assessment and monitoring of vital signs [x] Documentation [x] Medication orders and management Discharge Plan Departure Patient Disposition: Home Clinical Impression: Nausea vomiting and diarrhea, History of ulcerative colitis, Abdominal pain Instructions: DI for Viral Gastroenteritis -- Adult, DI for Abdominal Pain-Adult Activity Restrictions/Additional Instructions: History of ulcerative colitis, on remittive immunosuppressive therapy, no steroids, with nausea vomiting and diarrhea. Some abdominal pain as well. CT abdomen and pelvis imaging showed some fatty liver changes, no acute changes. Symptoms did not seem typical of your previous flares of ulcerative colitis, no bleeding for example. No fever on triage. We did discuss possible steroids for flare of ulcerative colitis, declined, hold for now. Take ondansetron as needed for nausea vomiting control. You could consider [id number] loperamide for diarrhea control. Recheck symptoms with your regular doctor on Saturday if symptoms persist. Return to this/nearest emergency department for any change worsening symptoms or any concerns prior Prescriptions: No Action fluoxetine 20 mg capsule 20 mg PO DAILY losartan 100 mg tablet 100 mg PO DAILY Qty: 90 1RF labetalol 200 mg tablet 200 mg PO BID Qty: 180 1RF prednisone 20 mg tablet 40 mg PO DAILY Qty: 10 0RF drospirenone-ethinyl estradiol [ABEBE (28)] 3-0.02 mg tablet 1 tab PO DAILY Qty: 84 5RF Rx Instructions: Take first 3 weeks of pills, discard the fourth week of pills, and start a new pack of pills. Entyvio 300 mg recon soln 300 mg IV Q4W Rx Instructions: administer week 6 of treatment pantoprazole [address] for susp in packet 40 mg PO BID ondansetron 4 mg tablet,disintegrating 4 mg PO Q6H PRN (Reason: nausea and vomiting) Qty: 14 0RF Referrals: Clemente Mosqueda MD [Primary Care Provider] - Stand Alone Forms: Patient Portal/API
[2023-08-30] MEDS: MORPHINE 4 MG/ML INJ IV (19:58)
[2023-08-30 20:32] LABS: HCG Quantitative /Beta subunit < 2.39 mIU/mL
--- NOTE | 2023-08-30 22:49 | DI.CT.S_ITS ---
PROCEDURE: CT ABDOMEN PELVIS W CON INDICATIONS: left sided abd pain, hx UC TECHNIQUE: After the administration of intravenous contrast, axial sections acquired from the lung bases to the pubic symphysis. Coronal and sagittal reformats were performed. For radiation dose reduction, the following was used: automated exposure control, adjustment of mA and/or kV according to patient size. COMPARISON: [facility], CT, CT ABDOMEN PELVIS W CON, 08/08/2022, 15:49. FINDINGS: Image quality: Diagnostic. Lower Chest: No significant findings. ABDOMEN: Liver: No solid mass. Moderate hepatic steatosis is seen. Gallbladder: Gallbladder is surgically absent. Biliary ducts: No biliary dilation. Pancreas: No ductal dilation. Spleen: Size is within normal limits. Adrenal Glands: No adrenal nodules. Kidneys and Ureters: No hydronephrosis. No solid mass. No complex renal cystic lesion which requires follow up. Stomach and Bowel: There is no bowel obstruction. No gastric or small bowel wall thickening. No gross colonic wall thickening or mesenteric fat stranding. No abscess collection. Peritoneum: No abnormal intraperitoneal fluid. No free air. Ventral Wall: No significant ventral hernia. Abdominal Nodes: No retroperitoneal or mesenteric adenopathy by size criteria. Vessels: Aorta and inferior vena cava are normal in size. PELVIS: Pelvic Organs: Unremarkable. Bladder: No bladder wall thickening, accounting for underdistention. Pelvic Nodes: No enlarged lymph nodes. Miscellaneous: No inguinal hernias are seen. Bones: No aggressive osseous abnormality. Mild bilateral sacroiliitis is again seen. IMPRESSION: 1. No bowel obstruction or abnormal bowel wall thickening. No mesenteric fat stranding. No free fluid or free air. 2. Moderate hepatic steatosis. Prior cholecystectomy. No significant biliary ductal dilatation is seen on the current study. 3. Mild bilateral sacroiliitis. No ankylosis or erosion is seen. Dictated by: Eros Farnsworth M.D. on 08/30/2023 at 23:12 Approved by: Eros Farnsworth M.D. on 08/30/2023 at 23:15
[2023-08-31] MEDS: ONDANSETRON 4 MG ODT PREPACK 1 BOTTLE MISC (00:14)
[2023-08-31 00:15] LABS: Adenovirus F 40/41 Not Detected (Not Detect); Astrovirus Not Detected (Not Detect); Campylobacter Not Detected (Not Detect); Clostridium difficile toxin AB Not Detected (Not Detect); Cryptosporidium Not Detected (Not Detect); Cyclospora cayetanensis Not Detected (Not Detect); Entamoeba histolytica Not Detected (Not Detect); Enteroaggregative E.coli Not Detected (Not Detect); Enteropathogenic E.coli Not Detected (Not Detect); Enterotoxigenic E.coli It/st Not Detected (Not Detect); Giardia lamblia Not Detected (Not Detect); Norovirus GI/GII Detected (Not Detect); Plesiomonsa shigelloides Not Detected (Not Detect); Rotavirus A Not Detected (Not Detect); Salmonella Not Detected (Not Detect); Sapovirus Not Detected (Not Detect); Shiga-like toxin-prod E.coli Not Detected (Not Detect); Shigella/Enteroinvasive E.coli Not Detected (Not Detect); Vibrio Not Detected (Not Detect); Vibrio cholerae Not Detected (Not Detect); Yersinia enterocolitica Not Detected (Not Detect)
[2023-08-31 00:19] VITALS: BP 124/78; PULSE 78; RESP 16; TEMP 36.4; O2SAT 99
== END 2023-08-31 00:20 | disposition home or self-care (01) ==
PROVIDERS: Emergency Provider Emergency Medicine; PCP Family Medicine
DX: R10.9 Unspecified abdominal pain (principal); R11.2 Nausea with vomiting, unspecified; Z87.19 Personal history of other diseases of the digestive system
CPT/HCPCS: 36415; 74177; 80053; 81003; 81025; 83690; 84702; 85025; 87507; 96361; 96374; 96375; 99284; J2270; J2405; Q9967